=== PATIENT | female | born 1935 | race Caucasian/White ===

== ENCOUNTER 2018-04-27 06:35 | Inpatient (IN) | payer MEDICARE ==
[2018-04-27] MEDS ORDERED: Aspirin 81 mg CHEW TAB* 81 MG TAB.CHEW PO ONE (07:02)
[2018-04-27] MEDS ORDERED: Morphine VIAL* 4 MG/ML VIAL (1 ml vial) IV ONE ×2 (07:04→07:05)
[2018-04-27] MEDS ORDERED: PROCHLORPERAZINE INJ 5 MG/ML 2 ML VIAL IV ONE (07:04)
[2018-04-27 07:38] LABS: ABS Basophils 0 10^3/ul (0-0.2); ABS Eosinophils 0.2 10^3/ul (0-0.6); ABS Lymphocytes 1.2 10^3/ul (1.0-4.8); ABS Monocytes 0.5 10^3/ul (0-0.8); ABS Neutrophils 3.9 10^3/ul (1.5-7.7); ABS Nucleated RBC 0 10^3/ul; Eosinophil % 2.8 % (0-6); Hematocrit 41 % (35-47); Hemoglobin 14.1 g/dl (12.0-16.0); Lymphocyte % 20.9 % (25-47); Mean Corpuscular HGB Conc 34 g/dl (31-36); Mean Corpuscular Hemoglobin 33 pg (27-31); Mean Corpuscular Volume 96 fL (80-97); Mean Platelet Volume 8.7 um3 (7.4-10.4); Nucleated Red Blood Cells % 0.1; Platelet Count 192 10^3/ul (150-450); Red Blood Count 4.28 10^6/ul (4.0-5.4); Red Cell Distribution Width 13 % (10.5-15); White Blood Count 5.9 10^3/ul (3.5-10.8)
[2018-04-27] MEDS ORDERED: NS 0.9% 250 ML* 250 ML IV ONE (07:49)
[2018-04-27] MEDS ORDERED: Ondansetron ODT TAB* 4 MG SL ONE (07:49)
--- NOTE | 2018-04-27 07:49 | RAD ---
HISTORY: Central chest pain COMPARISONS: February 26, 2018 VIEWS: 1: frontal portable view of the chest at 7:05 AM FINDINGS: LINES AND TUBES: None. CARDIOMEDIASTINAL SILHOUETTE: The cardiomediastinal silhouette is normal for portable technique. PLEURA: The costophrenic angles are sharp. No pleural abnormalities are noted. LUNG PARENCHYMA: There is hyperinflation. ABDOMEN: The upper abdomen is clear. There is no subphrenic gas. BONES AND SOFT TISSUES: No bone or soft tissue abnormalities are noted. IMPRESSION: NO ACTIVE CARDIOPULMONARY DISEASE.
[2018-04-27] MEDS ORDERED: HYDROmorphone INJ* 2 MG/ML CARPUJECT SYRINGE IV SLOW PU ONE (07:50)
[2018-04-27 08:01] LABS: EGFR Non-African American 70.4 (>60)
[2018-04-27] MEDS ORDERED: Iohexol 350* (CONTRAST) 500 ML MDV IV ONE (08:20)
--- NOTE | 2018-04-27 08:26 | RAD ---
HISTORY: Right upper quadrant pain, epigastric pain COMPARISONS: None TECHNIQUE: Multiple transverse and longitudinal ultrasound images were obtained of the right upper quadrant of the abdomen using grayscale and color Doppler imaging. FINDINGS: LIVER: The liver is normal in shape, size, contour, and echogenicity. There are no focal parenchymal masses. There is normal hepatopedal flow of the portal vein on Doppler imaging. BILIARY TREE: There is no intrahepatic or extrahepatic biliary dilatation. The common duct measures 0.6 cm. GALLBLADDER: The gallbladder is well-visualized. There is no cholelithiasis, gallbladder wall thickening, pericholecystic fluid, or sonographic Mo sign. PANCREAS: The head of the pancreas is unremarkable. The tail of the pancreas is not well visualized secondary to overlying bowel gas. The technologist notes the pancreatic duct is dilated at 0.26 cm. This is within normal limits for the head and neck of the pancreas. RIGHT KIDNEY: The right kidney is normal in shape, size, contour, and echogenicity. There is no hydronephrosis or nephrolithiasis. The right kidney measures 10.4 x 3.5 x 4 cm. AORTA AND IVC: The aorta and IVC are unremarkable. FLUID: There are no pleural effusions. There is no free fluid within the hepatorenal recess. OTHER FINDINGS: None. IMPRESSION: NO ACUTE SONOGRAPHIC PATHOLOGY OF THE VISUALIZED PORTION OF THE ABDOMEN
--- OUTSIDE RECORDS SUMMARY | 2018-04-27 08:37 | XMS REPORT ---
:1935 External Reference #:[id number] Author Organization [facility] Address [address] [place] [address] Phone [phone] Care Team Providers Name Role Phone Ismael Lowe M.D. Primary Care Physician Unavailable Payers Type Date Identification Numbers Payment Provider Subscriber Commercial Policy Number: [id number] [employer] [place] [employer] [facility] [employer] Number: [id number] 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, bilateral Onset: 01/21/2018 Sensorineural hearing loss Jhon Collier MD Active Onset: 01/21/2018 Chronic sinusitis Jhon Collier MD Active Onset: 01/21/2018 Chronic rhinitis Jhon Collier MD Active Family History Date Family Member(s) Problem(s) Comments General Allergies General Asthma General Cancer General Heart Attack Social History Type Date Description Comments Occupation Retired RN Cigarette Use Negative For Former Cigarette Smoker Cigarette Use Negative For Current Cigarette Smoker Cigars current.no Pipe current.no Smokeless Tobacco current.no ETOH Use Current Alcohol Use Occasionally Allergies, Adverse Reactions, Alerts Date Description Reaction Status Severity Comments 03/31/2014 Diovan active 03/31/2014 Morphine active 12/28/2008 NKDA inactive Medications Medication Date Status Form Strength Qnty SIG Indications Ordering Provider Fluticasone 04/16 Active Suspension 50mcg/Act 16uni 2 puffs H69.83 Jhon ts both sides Ruparelia once a day , Omeprazole Active 20mg 1 po daily [place], /0000 Ismael Cabello M.D. Vitamin D Active 1000Unit 1 po daily [place], /0000 Ismael Cabello M.D. Aspirin Active 81mg 1 po daily [place], /0000 Ismael Cabello M.D. Coreg Active 3.125,G 1 po daily [place], /0000 Ismael Cabello M.D. Premarin Active 0.625mg 1 GM per [place], / week Ismael Cabello M.D. Tylenol Active 325mg prn [place], /0000 Ismael Cabello M.D. Proair HFA Active 108(90) 2 puffs [place], / Q4PRN Ismael Cabello M.D. Calcium Active 500mg 1 po daily [place], /0000 Ismael Cabello M.D. Multivitamins Active 1 po daily [place], /0000 Ismael Cabello M.D. Preservision Active 2-2 1 po bid [place], [place] /0000 Ismael Cabello M.D. Dilaudid Active 2mg 1-2 po prn [place], q4-6hrs Ismael kelley M.D. Symbicort Active Aerosol 80-4.5mcg Unknown /Act Prednisone Active TBPK 5mg (48) as [place], 0000 directed Ismael Cabello M.D. Amitriptyline HCL Active Tablets 10mg 4 Tabs QHS Unknown Hydroxychloroquin Active Tablets 200mg 2 Tabs Unknown e Sulfate Daily Actonel Active Tablets 35mg Weekly Unknown Vitamin B Complex Active Tablets 1 by mouth every day Hydromorphone HCL Active Tablets 4mg Take 1 Tablet By Mouth Three Times Daily as Needed - Maximum Daily Dos Sodium Chloride Active Nebulizer 0.9% Inhale The Contents Of [address] Nebulizer Two Times Daily Sertraline HCL Active Tablets 75mg Take 1 Unknown 0000 Tablet By Mouth Every Day Doxycycline 03/04 Hx Tablets 100mg 20tab 0ne by J32.9 Jhon s mouth Amira - twice a MD Pepcid 03/31 Hx Tablets 40mg 30tab 40 mg p.o. 787.24 Jhon s q.h.diann Medel MD 03/31 Tessalon Perles 03/28 Hx Capsules 100mg 30cap one tablet 786.2 Jhon s po q6h prn Amira - and qMD ajay 03/31 Actonel 00/ Hx Unknown / - 03/28 Premarin / Hx Unknown / - 03/31 Meloxicam / Hx Unknown / - 03/31 Fish Oil / Hx Unknown / - 03/31 Magnesium 00/ Hx Unknown / - 03/31 Calcium 00/ Hx Unknown / - 03/31 Centrum 00/ Hx Unknown / - 03/31 Amitriptyline HCL 00/ Hx Unknown / - 03/28 Albuterol Sulfate 00/ Hx Unknown ER / - 03/31 Loratadine 00/ Hx Unknown / - 03/31 Lisinopril 00/ Hx Unknown / - 03/31 Dulera 00/ Hx inhale 2 [place], /0000 puffs bid Ismael Medel M.D. 08/27 Melatonin CR 00/00 Hx 5mg 1 po QHS [place], /0000 Ismael Medel M.D. 01/21 Nasonex 00/00 Hx Unknown / - 04/28 Provigil 00/ Hx 100mg 1 po daily [place], /0000 Ismael Medel M.D. 08/27 Vitamin E 00/ Hx Unknown / - 03/31 Zolpidem Tartrate 00/ Hx Unknown ER / - 03/31 Furosemide 00/00 Hx 20mg prn [place], /0000 Ismael Medel M.D. 08/27 Percocet Hx 5-325mg 1-2 po PRn [place], /0000 q4-6hrs Ismael Medel M.D. 08/27 Zoloft Hx 75mg 1 po daily [place], /0000 Ismael Medel M.D. 04/01 Sertraline HCL Hx Tablets 50mg Take 1 Unknown Tablet By - Mouth 04/01 Day Vital Signs Date Vital Result Comment 04/01/2018 Weight 138.00 lb Weight in kg's 62.597 Height 62.25 inches 5'2.25" Height in cm's 158.1 cm BMI (Body Mass Index) 25.0 kg/m2 03/04/2018 Weight 138.00 lb Weight in kg's 62.597 Height 62.25 inches 5'2.25" Height in cm's 158.1 cm BMI (Body Mass Index) 25.0 kg/m2 01/21/2018 Weight 138.00 lb Weight in kg's 62.597 Height 62.25 inches 5'2.25" Height in cm's 158.1 cm BMI (Body Mass Index) 25.0 kg/m2 04/16/2017 BP Systolic 122 mmHg BP Diastolic 78 mmHg Heart Rate 101 /min Respiratory Rate 17 /min Weight 148.00 lb Weight in kg's 67.133 Height 62.25 inches 5'2.25" Height in cm's 158.1 cm BMI (Body Mass Index) 26.8 kg/m2 08/28/2016 BP Systolic 129 mmHg BP Diastolic 66 mmHg Heart Rate 89 /min Respiratory Rate 17 /min Weight 148.00 lb Weight in kg's 67.133 Height 62.25 inches 5'2.25" Height in cm's 158.1 cm BMI (Body Mass Index) 26.8 kg/m2 07/02/2015 BP Systolic 112 mmHg BP Diastolic 71 mmHg Heart Rate 84 /min Respiratory Rate 16 /min Weight 138.00 lb Weight in kg's 62.597 Height 62.25 inches 5'2.25" Height in cm's 158.1 cm BMI (Body Mass Index) 25.0 kg/m2 03/31/2014 BP Systolic 156 mmHg BP Diastolic 86 mmHg Heart Rate 82 /min Respiratory Rate 16 /min Weight 138.00 lb Weight in kg's 62.597 Height 62.25 inches 5'2.25" Height in cm's 158.1 cm BMI (Body Mass Index) 25.0 kg/m2 04/28/2013 BP Systolic 127 mmHg BP Diastolic 76 mmHg Heart Rate 83 /min Respiratory Rate 16 /min Weight 140.00 lb Weight in kg's 63.504 Height 62 inches 5'2" Height in cm's 157.5 cm BMI (Body Mass Index) 25.6 kg/m2 03/31/2013 BP Systolic 157 mmHg BP Diastolic 87 mmHg Heart Rate 77 /min Respiratory Rate 17 /min Weight 140.00 lb Weight in kg's 63.504 05/03/2009 Heart Rate 84 /min Respiratory Rate 16 /min Weight 138.00 lb Weight in kg's 62.597 12/28/2008 Heart Rate 84 /min Respiratory Rate 16 /min Weight 138.00 lb Weight in kg's 62.597 Results Test Date Test Result H/L Range Note CBC With Manual Diff 04/29/2013 White Blood Count 5.1 10^3/uL 4.8-10.8 Red Blood Count 4.13 10^6/uL 4.0-5.4 Hemoglobin 13.0 g/dL 12.0-16.0 Hematocrit 39 % 35-47 Mean Corpuscular Volume 94 fL 80-97 Mean Corpuscular Hemoglobin 32 pg High 27-31 Mean Corpuscular HGB Conc 34 g/dL 31-36 Red Cell Distribution Width 13 % 10.5-15 Platelet Count 202 10^3/uL 150-450 Mean Platelet Volume 10 um3 7.4-10.4 Abs Neutrophils 3.4 10^3/uL 1.5-7.7 Abs Lymphocytes 1.0 10^3/uL 1.0-4.8 Abs Monocytes 0.4 10^3/uL 0-0.8 Abs Eosinophils 0.2 10^3/uL 0-0.6 Abs Basophils 0 10^3/uL 0-0.2 Abs Nucleated RBC 0 10^3/uL Neutrophil % 70 % 38-83 Band % 2 % 0-8 Lymphocytes % 21 % Low 25-47 Monocytes % 3 % 0-13 Eosinophils % 4 % 0-6 RBC Morphology Normal Normal Laboratory test finding 04/29/2013 TSH (Thyroid Stimulating 1.89 miu/mL 0.34-5.60 1 Horm) Comp Metabolic Panel 04/29/2013 Sodium 136 mmol/L 133-145 Potassium 4.4 mmol/L 3.5-5.0 Chloride 102 mmol/L 101-111 Co2 Carbon Dioxide 28.0 mmol/L 22-32 Anion Gap 6.0 mmol/L 2-11 Glucose 88 mg/dL 70-100 Blood Urea Nitrogen 16 mg/dL 6-24 Creatinine 0.60 mg/dL 0.50-1.40 BUN/Creatinine Ratio 26.7 High 8-20 Calcium 9.5 mg/dL 8.1-9.9 Total Protein 5.9 g/dL Low 6.2-8.1 Albumin 3.5 g/dL 3.2-5.2 Globulin 2.4 g/dL 2-4 Albumin/Globulin Ratio 1.5 1-3 Total Bilirubin 0.6 mg/dL 0.4-1.5 Alkaline Phosphatase 52 U/L 30-110 Alt 17 U/L 14-54 Ast 18 U/L 12-42 Egfr Non- 96.4 >60 Egfr 124.0 >60 2 1 FASTING 2 Because ethnic data is not always readily available, this report includes an eGFR for both -Americans and non- Americans. The National Kidney Disease Education Program (NKDEP) does not endorse the use of the MDRD equation for patients that are not between the ages of 18 and 70, are , have extremes of body size, muscle mass, or nutritional status, or are non- or non-. According to the National Kidney Foundation, irrespective of diagnosis, the stage of the disease is based on the level of kidney function: Stage Description GFR(mL/min/1.73 m(2)) 1 Kidney damage with normal or decreased GFR 90 2 Kidney damage with mild decrease in GFR 60-89 3 Moderate decrease in GFR 30-59 4 Severe decrease in GFR 15-29 5 Kidney failure <15 (or dialysis) Procedures Date CPT Code Description Status 01/28/2018 72903 Tympanostomy W/Tube Local Or Topical Anes. Completed 01/21/2018 32414 Tympanometry Completed 01/21/2018 67183 Comprehensive Audiogram Completed 01/21/2018 46307 Binocular Microscopy Completed 09/05/2016 95041 Injection,Anesthetic Agent Completed 08/28/2016 46040 Injection,Anesthetic Agent Completed 04/28/2013 69219 Fiberoptic Laryngoscopy Completed 03/28/2011 68600 Fiberoptic Laryngoscopy Completed Encounters Type Date Location Provider CPT E/M Dx Office Visit 04/01/2018 10:15a [place],After 11/23/07 [place] [address] J32.9 J31.0 H69.83 Office Visit 03/04/2018 2:45p [place],After 11/23/07 [place] [address] J32.9 J31.0 H69.83 Office Visit 01/28/2018 2:30p [place],After 11/23/07 [place] [address] H69.83 J31.0 H65.21 Office Visit 01/21/2018 9:45a [place],After 11/23/07 [place] [address] J31.0 H69.83 J32.9 H90.5 Office Visit 04/16/2017 3:15p [place],After 11/23/07 [place] [address] H69.83 J31.0 Office Visit 08/28/2016 9:15a [place],After 11/23/07 [place] [address] G50.1 G44.091 Office Visit 07/02/2015 9:45a [place],After 11/23/07 [place] [address] 786.2 472.0 Office Visit 03/31/2014 11:00a [place],After 11/23/07 [place] [address] 173.31 Office Visit 04/28/2013 11:15a [place],After 11/23/07 [place] [address] 786.2 787.24 Office Visit 03/31/2013 8:45a [place],After 11/23/07 [place] [address] 787.24 786.2 472.0 Office Visit 03/28/2011 8:45a [place],After 11/23/07 [place] [address] 472.0 786.2 787.24 401.9 Office Visit 10/26/2009 10:45a [place],After 11/23/07 [place] [address] 472.0 351.8 Office Visit 10/11/2009 10:45a [place],After 11/23/07 [place] [address] 472.0 473.0 Office Visit 05/03/2009 1:30p [place],After 11/23/07 [place] [address] 529.0 351.8 Office Visit 12/28/2008 1:30p [place],After 11/23/07 [place] [address] 470 781.1 Plan of Care 04/01/2018 - Jhon Collier MDJ32.9 Chronic sinusitis, ksplfgfbxmxP44.0 Chronic dcwajfulY51.83 Other specified disorders of Eustachian tube, bilateralComments:At this point I feel that she is relatively frustrated that were not able to give her a good diagnosis and help. But I do feel that this situation is unlikely to be resolved easily with further medical management and probably requires some psychological support that this may be a condition that she may have to live with. 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 She refuses this answer.
[2018-04-27] MEDS ORDERED: Lidocaine 2% VISCOUS* 15 ML UDC PO ONE (08:41)
[2018-04-27] MEDS ORDERED: Al Hydrox/Mg Hydrox/Simet LIQ* 30 ML UDC PO ONE (08:41)
--- NOTE | 2018-04-27 08:53 | RAD ---
STUDY: CT angiography of the chest, abdomen and pelvis. 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 Relevant surgical history includes hysterectomy. COMPARISON: CT of the chest dated February 21, 2015 TECHNIQUE: Multidetector CT angiography of the chest, abdomen and pelvis were obtained from the lung apices to the ischial tuberosities after the intravenous injection of 100 mL Omnipaque 350. Reformats were created in the coronal and sagittal planes. 3-D vascular imaging was created from the source images and reviewed as well. ANGIOGRAPHIC FINDINGS: The thoracic and abdominal aorta does not exhibit any pathologic dilatation or evidence of acute dissection. There is scattered calcified atherosclerosis at the arch of the aorta and major branch vessels. There is mild curvature of the lower abdominal aorta, appropriate for the patient's age. There is adequate filling of the major branch vessels of the abdominal aorta including the celiac trunk, superior mesenteric artery, bilateral renal arteries and inferior mesenteric artery Contrast is seen filling as far as the bilateral superficial femoral arteries. NON ANGIOGRAPHIC FINDINGS: Chest: The lungs are clear. There are no large pleural effusions. There is no mediastinal or hilar lymphadenopathy. There is a trace pericardial effusion. There is no cardiomegaly. Abdomen & Pelvis: The liver, spleen, pancreas and adrenal glands are grossly normal in appearance. The gallbladder is normal. The kidneys are normal in appearance without focal mass, calcification or signs of hydronephrosis. The renal cortices enhance promptly and symmetrically on arterial phase imaging. Evaluation of the gastrointestinal tract is limited without oral contrast. The small and large bowel are not distended. The partially gas-filled appendix is most likely identified at the base of the cecum without focal inflammatory change (coronal image 59 and axial image 171). At the low midline abdomen there is focal infiltration of the peritoneal fat and mesenteric root (for example axial image 177). In this same area there is trace ascites. There are numerable rectosigmoid diverticula, some with inspissated oral contrast without focal inflammatory change. There is no gross retroperitoneal or mesenteric lymphadenopathy. The uterus is surgically absent. A pessary device is noted at the pelvic floor. Multilevel degenerative changes of the thoracic and lumbar spine include loss of intervertebral disc height.There are no sinister bone lesions. IMPRESSION: 1. Normal and age-appropriate CT arteriography as described above. There is no sign of pathologic aneurysmal dilatation or acute aortic dissection. 2. Evaluation of the gastrointestinal tract is limited without oral contrast, but CT findings are compatible with enteritis involving the small bowel of the low midline abdomen. 3. Additional chronic, degenerative and iatrogenic findings described in the body the report.
[2018-04-27] MEDS ORDERED: Metoprolol Tartrate IV* 1 MG/ML 5 ML VIAL IV ONE (08:57)
[2018-04-27] MEDS ORDERED: Nitroglycerin TAB 0.4 MG* 0.4 MG TAB SL ONE (09:20)
[2018-04-27] MEDS ORDERED: Magnesium Hydroxide LIQ* 30 ML UDC PO PRN (09:52)
[2018-04-27] MEDS ORDERED: Loperamide CAP* 2 MG PO PRN (09:59)
[2018-04-27] MEDS ORDERED: Omeprazole CAP* 20 MG PO SCH (10:00)
[2018-04-27] MEDS: Sodium Chloride(INHALANT)0.9%* 5 ML NEB.SOLN INH SCH ×2 (11:24→20:45)
[2018-04-27] MEDS: HYDROmorphone INJ* 2 MG/ML CARPUJECT SYRINGE IV SLOW PU PRN ×2 (12:11→21:49)
[2018-04-27] MEDS: Sertraline* 25 MG TAB PO SCH (12:13)
[2018-04-27] MEDS: Vitamin B Complex TAB PO SCH (12:13)
[2018-04-27] MEDS: Hydroxychloroquine TAB* 200 MG PO SCH (12:14)
[2018-04-27] MEDS: predniSONE TAB* 5 MG PO SCH (12:14)
[2018-04-27] MEDS: Aspirin EC TAB* 81 MG TAB.EC PO SCH (12:14)
[2018-04-27] MEDS: Fluticasone NASAL SPRAY 50MCG* 16 gm SPRAY BTL BOTH NARES SCH (12:14)
[2018-04-27] MEDS: Carvedilol TAB* 6.25 MG PO SCH ×2 (12:14→21:01)
[2018-04-27] MEDS: NS 0.9% 1000 ML* 1,000 ML IV SCH ×2 (12:31→19:24)
--- NOTE | 2018-04-27 12:41 | HP ---
AMENDED REPORT NOW INCLUDES COSIGNER DESIGNATION - ESIGNED BEFORE ADJUSTMENT CC: Brandan Rosario MD; Derrick Lowe MD* ADMISSION HISTORY AND PHYSICAL: DATE OF ADMISSION: 04/27/18 PATIENT OF: Alyssa Ch MD PRIMARY CARE PHYSICIAN: Derrick Lowe MD PRIMARY MANAGER IN HOME: Brandan Rosario MD ATTENDING HOSPITALIST: Dr. Ch.* (DICTATED BY SARBJIT MILLER) CHIEF COMPLAINT: Epigastric and chest pain. HISTORY OF PRESENT ILLNESS: Mrs. Duran is a pleasant 82-year-old female with a complicated past medical history significant for cardiomyopathy, an unknown autoimmune disease, a chronic diastolic heart failure, as well as multiple chronic joint pains related to fibromyalgia rheumatica. She presented to the emergency room earlier this morning complaining of acute onset of severe epigastric and chest pain. The patient notes that she was awakened early this morning with severe epigastric pain that radiated up to her chest and back towards her back. She noted associated nausea, but denies any vomiting, palpitations, shortness of breath, cough, or fever. She described it as a sharp pain that had gotten progressively worse in the past 2 hours. She was brought to the emergency room by her friend and was evaluated for possible acute coronary syndrome. It is known that the patient has a history of cardiomyopathy and has been doing annual echocardiograms most recently on and noted to have normal left ventricle ejection fraction of 55% to 60% and no evidence of any acute changes compared to previous studies. She had extensive workup during her ED visit including an ultrasound of the right upper quadrant that failed to reveal any evidence of cholecystitis or cholelithiasis. She denies any associated changes in the bowel habits, jaundice, or changes in the color of stool of urine. She also had a CTA of the chest, abdomen, and pelvis that revealed no evidence of aneurysm; however, showed possibility of enteritis without definite diagnosis because of the lack of oral contrast. The patient was also noted to be severely hypertensive in the ED for which she received 5 mg of IV metoprolol with very good response. She also had a GI cocktail in the ED that alleviated her symptoms; however, she continued to have some mild epigastric pain. Her initial troponin was 0 and her EKG was essentially normal with no evidence of ST changes noted. Given her advanced age and her known history of autoimmune disorders, we were asked to see the patient for evaluation and to consider admission to telemetry for stress test on the following day. At the time of admission, the patient was comfortable in bed and denied any significant recurrent chest pain or epigastric pain. PAST MEDICAL HISTORY: 1. As mentioned above, significant for asthma without exacerbation. 2. Cardiomyopathy. 3. Glaucoma. 4. Degenerative joint disease. 5. GERD. 6. Hyperlipidemia. 7. Chronic diastolic heart failure with last echocardiogram in February of this year with ejection fraction of 55% to 60%. 8. Obstructive sleep apnea; however, not treated. The patient used no CPAP at home. 9. Collagen disorder. 10. Raynaud's syndrome. 11. Depression. 12. Mitral valve disease. PAST SURGICAL HISTORY: Significant for: 1. Bilateral total knee replacements in 2011. 2. Hysterectomy. 3. Nasal septoplasty. 4. Tubal ligation. 5. Right lower extremity vein stripping. 6. Tonsillectomy and adenoidectomy in childhood. 7. Bilateral cataract extractions in 2010. 8. Most recently right ear tube placement due to symptoms of chronic Eustachian tube congestion. CURRENT MEDICATIONS: Her medications at home include: 1. Atenolol 500 mg p.o. q.6 hours as needed for pain. 2. Ventolin MDI 2 puffs inhaler q.4 hours as needed for shortness of breath. 3. Elavil 40 mg p.o. q.h.s. 4. Vitamin C tablets 1000 mg p.o. daily. 5. Aspirin 81 mg p.o. daily. 6. Symbicort 80/4.5 two puffs inhaled b.i.d. 7. Coreg 6.25 mg p.o. b.i.d. 8. Vitamin D tablets 2000 units p.o. daily. 9. Estrogen cream 1 application vaginally twice a week. 10. Flonase nasal spray 50 mcg 2 sprays in both nares daily. 11. Dilaudid 4 mg p.o. t.i.d. as needed for pain. 12. Plaquenil 400 mg p.o. daily. 13. Probiotic acidophilus 1 tablet p.o. daily. 14. Xyzal 5 mg p.o. daily. 15. Imodium 2 mg p.o. daily as needed for diarrhea. 16. Prilosec 20 mg p.o. daily. 17. Prednisone 7.5 mg p.o. daily. 18. Actonel 35 mg p.o. weekly. 19. Zoloft 75 mg p.o. daily. 20. Sodium chloride 5 mL inhaled via nebulizer b.i.d. 21. Multivitamin 1 tablet p.o. b.i.d. 22. Vitamin B complex 1 tablet p.o. daily. ALLERGIES: Multiple including MORPHINE, VALSARTAN. She also notes that taking PERCOCET in large doses causes her dry mouth and QUINOLONES cause diarrhea. FAMILY HISTORY: Noncontributory. SOCIAL HISTORY: The patient is a nonsmoker who denies alcohol intake or illicit drug use. She is a retired nurse. She is and lives by herself and has a close friend that checks on her daily. Her surrogate decision makers are her daughters Lori and Marly who live in [place] and [place] respectively. REVIEW OF SYSTEMS: I have performed a 14-point review of systems. All the pertinent positives and negatives are mentioned in the history of present illness and the remainder of review of systems is essentially negative. PHYSICAL EXAMINATION GENERAL: She is a pleasant elderly female, appears comfortable, and in no acute distress or discomfort at the time of admission. VITAL SIGNS: Reveal blood pressure of 144/79 which had come down from 204 on 101 upon presentation. Her pulse is 76, temperature is 97.5, respirations of 16 , and O2 sat of 98% on room air. HEENT: Head is normocephalic and atraumatic. Sclerae anicteric, PERRLA. EOMs intact. Oropharynx is pink and moist with no exudate. NECK: Supple. Trachea midline. No cervical adenopathy, thyromegaly, or JVD. LUNGS: Clear to auscultation bilaterally. HEART: Regular rate and rhythm. Normal S1 and S2 without rubs, murmurs, or gallops. BACK: Normal curvature, no CVA tenderness. BREASTS: Deferred at this time. ABDOMEN: Soft and nondistended. There is mild epigastric tenderness noted on deep palpation without guarding, rigidity, or rebound tenderness. There is no hernias, masses, or hepatosplenomegaly. EXTREMITIES: Without cyanosis, clubbing, or edema. RECTAL: Deferred at this time. NEUROLOGIC: Grossly intact. She is awake, alert, and oriented x3. Equal hand recovery specialist and tongue is midline. LABORATORY WORKUP: CBC with white count of 6000, hemoglobin 14.1, hematocrit of 41, and platelets of 192,000. Her chemistry panel was sodium of 140, potassium 3.7, CO2 of 30, BUN 21, creatinine 0.78. Her lactic acid is 1.8, glucose of 135, magnesium 2.1. LFTs, TSH, and free T4 are all within normal limits and troponin was 0. ACCESSORY DIAGNOSTIC DATA: Chest x-ray with no acute changes noted. Gallbladder ultrasound as mentioned with no evidence of cholecystitis or cholelithiasis. CTA of the chest, abdomen, and pelvis with no evidence of aneurysm noted and question possibility of enteritis in the small bowel. IMPRESSION: An 82-year-old female with complicated past medical history including hypertension and unknown autoimmune disease, as well as a collagen disorder for which she has been chronically on prednisone and Plaquenil as well as fibromyalgia rheumatica for which she has been chronically on Dilaudid at home who presented to the emergency room this morning with acute onset of severe epigastric and chest pain radiating to her back with negative workup at this time who will be admitted for observation to the telemetry unit to rule out acute coronary syndrome. ASSESSMENT AND PLAN: 1. Chest pain. It seems to be more epigastric, radiating to her back which is likely related to gastritis versus digestive GI issues. Given her age and multiple comorbidities, it is necessary to rule out any possibility of acute coronary syndrome for which the patient will be admitted to telemetry for close observation and serial troponins. We will plan on repeating her EKG tomorrow morning and we will schedule her for a nuclear stress test. She appears to be stable from a cardiac standpoint at this time and her last echocardiogram done 2 months ago revealed good ejection fraction with no significant ventricular abnormality. 2. Hypertension. We will continue her on Coreg and it is noted that the patient had a hypertensive episode upon presentation likely secondary to her pain which responded well to a single dose of IV Lopressor 5 mg. We will maintain her on all her home medications and will monitor her closely. 3. Autoimmune disorder. We will continue the patient on her prednisone and Plaquenil. 4. History of asthma. We will continue the patient on her Symbicort, albuterol inhaler, as well as normal saline nebulizers. 5. Gastroesophageal reflux disease. The patient will be continued on her omeprazole and also will use Maalox as needed for indigestion. 6. History of depression. We will continue her on home Zoloft. 7. Code status. The patient is a full code. 8. DVT prophylaxis. The patient has scored 4 making her a high risk and will be covered with subcu heparin. 9. Disposition. The patient will be placed to telemetry unit on observation status. TIME SPENT: I have spent approximately 60 minutes admitting this patient with greater than50% spent taking history and physical and discussing plans of care. I have discussed the case with my attending Dr. Ch who agreed to the plan of care. SARBJIT MILLER [id number]/[facility] #: [id number] MTDD
[2018-04-27] MEDS: Mometasone/Formoter 100/5 MDI INH SCH ×2 (13:48→20:45)
[2018-04-27] MEDS ORDERED: Heparin VIAL(*) 5000 UNITS/ML VIAL (FIVE THOUSAND) SUBCUT SCH (14:00)
[2018-04-27] MEDS ORDERED: NS 0.9% 500 ML* 500 ML IV ONE (16:08)
[2018-04-27] MEDS: Ondansetron 40 MG VIAL* 2 MG/ML 20 ML VIAL IV PRN (16:28)
--- NOTE | 2018-04-27 16:29 | PN ---
Progress Note - Progress Note Date of Service: 04/27/18 Note: I was called by nursing staff to evaluate the patient. She had a large loose bloody bowel movement, after which she got dizzy with BP of 80/50 Brought back to her bed and I ordered a bolus of 500cc 0.9% NS STAT CBC, type and screen, and lactic acid were ordered Patient was seen and examined with in room as well. Still with moderate epigastric tenderness, radiating to her back Denies any headaches, syncope, chest pain or SOB. I contacted Dr. Lee who will see patient for consultation Concern for ischemic colitis at this point Clear liquid diet, await labs, NPO after midnight for possible Flex Sig per Dr. Lee's recommendations
[2018-04-27 16:33] LABS: Hematocrit 47 % (35-47); Hemoglobin 15.5 g/dl (12.0-16.0); Mean Corpuscular HGB Conc 33 g/dl (31-36); Mean Corpuscular Hemoglobin 32 pg (27-31); Mean Corpuscular Volume 98 fL (80-97); Mean Platelet Volume 8.8 um3 (7.4-10.4); Platelet Count 201 10^3/ul (150-450); Red Blood Count 4.81 10^6/ul (4.0-5.4); Red Cell Distribution Width 13 % (10.5-15); White Blood Count 13.9 10^3/ul (3.5-10.8)
[2018-04-27] MEDS: Cetirizine* 10 MG TAB PO SCH (17:07)
[2018-04-27] MEDS: Pantoprazole IV* 40 MG IV SCH (18:30)
[2018-04-27] MEDS ORDERED: ZOSYN 3.375 GM x ONE DOSE over 30 miuntes IVPB ×2 (19:30)
[2018-04-27] MEDS: HYDROmorphone TAB* 4 MG PO PRN (19:31)
[2018-04-27 20:20] LABS: Hematocrit 46 % (35-47); Hemoglobin 15.3 g/dl (12.0-16.0)
[2018-04-27] MEDS: Amitriptyline TAB* 10 MG PO SCH (21:01)
--- NOTE | 2018-04-27 22:09 | CONS ---
GASTROENTEROLOGY CONSULT: DATE OF CONSULT: 04/27/18 CONSULTING PHYSICIANS: Derrick Lowe MD; Alyssa Ch MD; Brandan Rosario MD REASON FOR CONSULTATION: A 4 a.m. onset of mid to upper abdominal pain followed by bloody diarrhea and CT scan showing thickening of small bowel in the low midline. DICTATION ENDS ABRUPTLY HERE [id number]/[facility] #: [id number] MTDD
--- NOTE | 2018-04-27 23:08 | CONS ---
GASTROENTEROLOGY CONSULT: DATE : CONSULTING PHYSICIAN: Derrick Lowe, Alyssa Ch, Brandan Rosario. REASON FOR CONSULTATION: Abdominal pain beginning at 4 a.m. followed by bloody stools in the midafternoon. A CT scan showing possible thickening of lower bowel loops, though a noncontrast study. HISTORY OF PRESENT ILLNESS: This 82-year-old woman, who is on prednisone 7.5 mg daily because of an undefined autoimmune disorder and also Plaquenil 400 mg and a dozen other medications, was in her usual state of somewhat compromised health the last week. She ate normally yesterday. This morning, she was awakened from sleep at 4 a.m. with mid upper abdominal pain. She did not have any vomiting or cramps or diarrhea. Pain was just above the navel and eventually seemed to radiate a little bit to the left and to the back. She had 4 or 5 small formed stools in the morning, which is her pattern. There was no blood or fever. She came to the emergency room around 7 a.m. Her white count was normal. With the character of the pain, a vascular catastrophe was suspected and she had a CTA with no oral contrast. No vascular event was defined. She had negative troponins. There was steady pain and she was admitted and source of her pain was unclear. In the middle of the afternoon, she had a large bloody bowel movement. About an hour later, she had a smaller one. The focus changed from chest pain rule out coronary syndrome to possible enteric ischemia. She has never had a illness like this before. Prior colonoscopies have shown pancolonic diverticulosis with the last exam May of 2014. At that time, biopsies were negative for microscopic colitis. She is prone to loose stools and takes an Imodium, maybe once a week. Often times, it will precipitate some mild constipation. Diarrhea has been longstanding. It was a cause for having duodenal biopsy in 2012 and that was negative. PAST MEDICAL HISTORY: 1. Autoimmune disorder - she is followed by Dr Gaspar. 2. Anxiety and depression. 3. History of diastolic dysfunction, followed with annual echos. 4. Sleep apnea - not under treatment. 5. Status post total knee replacement in 2011. 6. Status post simple hysterectomy - she is not certain of the ovarian status. 7. History of nasal septoplasty. 8. History of tonsillectomy. 9. Cataract extraction in 2010. 10. Bronchiectasis - followed by Dr. Brown MEDICATIONS: Upwards of 18 - after medication reconciliation of greatest relevance appeared to be prednisone 7.5; Plaquenil 400; sertraline 75; Actonel 35; omeprazole 20; amitriptyline 40 mg h.s.; hydromorphone 40 mg t.i.d. SOCIAL HISTORY: She is , lives in [place]. 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 She has a disabled son with a substance abuse disorder. REVIEW OF SYSTEMS: No history of MO, syncope, pacemaker, seizures, MS, neuropathy, hepatitis, jaundice, renal stones or colon polyps. PHYSICAL EXAM: She is a chronically ill-appearing, elderly woman, in bed, moderately uncomfortable. There has been no vomiting. She is afebrile. Temp 97.6. Her eyes are a little bloodshot. Mucous membranes are normal. She has no adenopathy. Her lungs have some rhonchi and are decreased in breath sounds. Heart sounds are regular. Breast and pelvic exam is deferred. The abdomen is mildly rounded, mildly obese with diminished bowel sounds, although a few are heard. She has no guarding or rigidity, but complains of tenderness in the epigastrium and mid to left abdomen. Rectal deferred as she has been passing fresh blood. Extremities show no edema. There are well-healed scars of the knees. Neurologic - nonfocal with normal cranial nerves. Her mentation is normal. DIAGNOSTIC STUDIES/LAB DATA: Radiology review - gallbladder ultrasound shows no stones and a normal biliary tree with common duct 6 mm. There is no ascites. CT scan - no fluid collection or abscess in the abdomen; though without oral contrast, loops are not clearly defined. Labs: Repeat white count after 9 hours 13.9 up from 5.9. Hemoglobin 15.5, MCV 98, platelets 201. Creatinine is 0.78, BUN 21 this morning, lactate 2.2. LFTs normal. Albumin 4.3. IMPRESSION: This 82-year-old woman with an undefined autoimmune disorder, on prednisone and Plaquenil developed abdominal pain in the middle of the night and then came in with steady pain. There was no gastrointestinal signature to her description of symptoms. Later, she had a large bloody bowel movement. Most causes of gastrointestinal bleeding would not be associated with pain to this degree. It raises the question of ischemia and with the delay in the appearance of bleeding that would most likely be in the upper half of the colon one might think or possibly distal small bowel. She does not have distention or acute surgical signs on physical exam, but localized area of small bowel ischemia remains a possibility. After discussion with her clinician, she is going to be started on antibiotic and to have lactate, white count and other labs followed and 2 views of the abdomen done in the morning. If she is not progressed to sepsis or marisol ischemia, an unprepped limited colonoscopy could be useful for confirming colon ischemia. [id number]/[facility] #: [id number] EMILY
[2018-04-28] MEDS: Piperacillin/Tazobac ADVAN(*) 3.375 GM in NS 0.9% 100 ML* 100 ML IVPB SCH ×3 (00:11→17:36)
[2018-04-28] MEDS: HYDROmorphone INJ* 2 MG/ML CARPUJECT SYRINGE IV SLOW PU PRN ×4 (04:08→19:56)
[2018-04-28] MEDS: Ondansetron 40 MG VIAL* 2 MG/ML 20 ML VIAL IV PRN ×3 (04:12→12:19)
[2018-04-28 05:47] LABS: ABS Basophils 0 10^3/ul (0-0.2); ABS Eosinophils 0 10^3/ul (0-0.6); ABS Lymphocytes 0.4 10^3/ul (1.0-4.8); ABS Monocytes 0.6 10^3/ul (0-0.8); ABS Neutrophils 6.8 10^3/ul (1.5-7.7); ABS Nucleated RBC 0 10^3/ul; Eosinophil % 0.2 % (0-6); Hematocrit 43 % (35-47); Hemoglobin 14.6 g/dl (12.0-16.0); Lymphocyte % 4.6 % (25-47); Mean Corpuscular HGB Conc 34 g/dl (31-36); Mean Corpuscular Hemoglobin 33 pg (27-31); Mean Corpuscular Volume 96 fL (80-97); Mean Platelet Volume 8.9 um3 (7.4-10.4); Nucleated Red Blood Cells % 0; Platelet Count 201 10^3/ul (150-450); Red Cell Distribution Width 14 % (10.5-15); White Blood Count 7.8 10^3/ul (3.5-10.8)
[2018-04-28 06:05] LABS: EGFR Non-African American 85.3 (>60)
[2018-04-28] MEDS: Mometasone/Formoter 100/5 MDI INH SCH ×2 (07:32→20:20)
[2018-04-28] MEDS: Sodium Chloride(INHALANT)0.9%* 5 ML NEB.SOLN INH SCH ×2 (07:32→20:20)
--- NOTE | 2018-04-28 08:11 | PN ---
Subjective Date of Service: 04/28/18 Interval History: Patient reports no further bloody bowel movements today but did have 6 approx yesterday and 1-2 overnight noted to be bright red with dark clots. Continues to have diffuse abdominal pain with some nausea and dry heaving, denies any blood noted in emesis - only had "spit up small amount of bile". Pain is worse with movement. Denies fever or chills. Objective Active Medications: Acetaminophen (Tylenol Tab*) 650 mg PO Q4H PRN PRN Reason: FEVER/PAIN Al Hydrox/Mg Hydrox/Simethicone (Maalox Plus*) 30 ml PO Q6H PRN PRN Reason: INDIGESTION Albuterol (Ventolin Hfa Inhaler*) 2 puff INH Q4H PRN PRN Reason: SOB/WHEEZING Amitriptyline HCl (Elavil Tab*) 40 mg PO BEDTIME [facility] Last Admin: 04/27/18 21:01 Dose: 40 mg Ascorbic Acid (Vitamin C Tab*) 1,000 mg PO DAILY [facility] Aspirin (Aspirin Ec Tab*) 81 mg PO DAILY [facility] Last Admin: 04/27/18 12:14 Dose: 81 mg Carvedilol (Coreg Tab*) 6.25 mg PO BID [facility] Last Admin: 04/27/18 21:01 Dose: 6.25 mg Cetirizine HCl (Zyrtec*) 10 mg PO QPM [facility] Last Admin: 04/27/18 17:07 Dose: 10 mg Cholecalciferol (Vitamin D Tab*) 2,000 units PO DAILY [facility] Fluticasone Propionate (Flonase Nasal [place] 50mcg*) 2 spray BOTH NARES DAILY [facility] Last Admin: 04/27/18 12:14 Dose: 2 spray Hydromorphone HCl (Dilaudid Inj*) 1 mg IV SLOW PU Q4H PRN PRN Reason: PAIN - BREAKTHROUGH Last Admin: 04/28/18 04:08 Dose: 1 mg Hydromorphone HCl (Dilaudid Tab*) 4 mg PO TID PRN PRN Reason: PAIN Last Admin: 04/27/18 19:31 Dose: 4 mg Hydroxychloroquine Sulfate (Plaquenil Tab*) 400 mg PO DAILY [facility] Last Admin: 04/27/18 12:14 Dose: 400 mg Sodium Chloride (Ns 0.9% 1000 Ml*) 1,000 mls @ 75 mls/hr IV PER RATE [facility] Last Admin: 04/27/18 19:24 Dose: 75 mls/hr Piperacillin Sod/Tazobactam (Sod 3.375 gm/ Sodium Chloride) 100 mls @ 25 mls/ hr IVPB Q8H [facility] Last Admin: 04/28/18 00:11 Dose: 25 mls/hr Loperamide HCl (Imodium Cap*) 2 mg PO DAILY PRN PRN Reason: DIARRHEA Magnesium Hydroxide (Milk Of Magnesia Liq*) 30 ml PO Q4H PRN PRN Reason: CONSTIPATION Mometasone Furoate/Formoterol Fumar (Dulera 100/5 Mdi*) 2 puff INH BID [facility] Last Admin: 04/28/18 07:32 Dose: 2 puff Ondansetron HCl (Zofran 40 Mg Vial*) 4 mg IV Q4H PRN PRN Reason: NAUSEA/VOMITING Last Admin: 04/28/18 04:12 Dose: 4 mg Pantoprazole Sodium (Protonix Iv*) 40 mg IV Q24H [facility] Last Admin: 04/27/18 18:30 Dose: 40 mg Prednisone (Deltasone Tab*) 7.5 mg PO DAILY [facility] Last Admin: 04/27/18 12:14 Dose: 7.5 mg Sertraline HCl (Zoloft*) 75 mg PO DAILY [facility] Last Admin: 04/27/18 12:13 Dose: 75 mg Sodium Chloride (Sodium Chloride(Inhalant)0.9%*) 5 ml INH BID [facility] Last Admin: 04/28/18 07:32 Dose: 5 ml Vitamin B Complex/Vitamin E (B Complex-50*) 1 tab PO DAILY [facility] Last Admin: 04/27/18 12:13 Dose: 1 tab Vital Signs - 8 hr 04/28/18 04/28/18 04/28/18 04:08 04:21 05:04 Temperature 98.0 F Pulse Rate 100 Respiratory 18 16 16 Rate Blood Pressure 97/46 (mmHg) O2 Sat by Pulse 94 Oximetry 04/28/18 07:34 Temperature Pulse Rate 92 Respiratory 14 Rate Blood Pressure (mmHg) O2 Sat by Pulse 94 Oximetry Oxygen Devices in Use Now: Nasal Cannula Appearance: 82 yo female laying in bed A+Ox3 in NAD Eyes: No Scleral Icterus, PERRLA Ears/Nose/Mouth/Throat: NL Teeth, Lips, Gums, Mucous Membranes Moist Neck: NL Appearance and Movements; NL JVP Respiratory: - - mild coarse rhonchi throughout Cardiovascular: NL Sounds; No Murmurs; No JVD, RRR, No Edema Abdominal: - - soft, non-distended, diffuse tenderness, mild guarding. Hypoactive BS Lymphatic: No Cervical Adenopathy Extremities: No Edema, No Clubbing, Cyanosis Skin: No Rash or Ulcers, No Nodules or Sclerosis Neurological: Alert and Oriented x 3, NL Sensation, NL Muscle Strength and Tone Lines/Tubes/Other Access: Clean, Dry and Intact Peripheral IV Nutrition: - - NPO Result Diagrams: 04/28/18 12:04 04/28/18 05:34 Assess/Plan/Problems-Billing Assessment: 82 yo female with a PMH of HTN, 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 No signs of acute abdomen or Sepsis - Approx 6 bright red bowel movements yesterday afternoon/evening, 1-2 overnight and non since. Continues to have diffuse abdominal pain, exacerbated by movement. - Appreciate GI consult; most likely plan for flex-sig today with Dr. Lee. - Per GI ok for clears, at this point will do ice chips only d/t some nausea and dry heaving - HH stable. Continue to trend HH Q6hrs - Continue Zosyn - Continue pain control (2) Bronchiectasis Comment: - Chronic Hx - Follows with Dr. Brown - Continues home meds, Inhalers - Currently requiring supplemental O2 2L - most likley from pain and breathing shalllow. Plan for IS. (3) Asthma Comment: No evidence of acute exacerbation. Continue albuterol prn and symbicort. (4) Autoimmune disorder Comment: Continue plaquenil and prednisone. (5) Hypertension Comment: Controlled. Continue Coreg home dose 6.25 mg BID (6) DVT prophylaxis Comment: SCDs in the setting of GI bleeding (7) Full code status Status and Disposition: OBV switch to inpatient. Most likely will go home when medically stable.
--- NOTE | 2018-04-28 08:35 | RAD ---
INDICATION: Possible GI bleed. COMPARISON: Comparison is made with a prior CT of the abdomen and pelvis from April 27, 2018. TECHNIQUE: Supine and upright views of the abdomen were obtained. FINDINGS: The small bowel colon appear nondistended. There are few scattered air-fluid levels within the small bowel and colon. No free intraperitoneal air is seen. IMPRESSION: NONSPECIFIC GAS PATTERN. THERE ARE SCATTERED AIR-FLUID LEVELS WITHIN THE SMALL BOWEL AND COLON WITHOUT GROSS EVIDENCE FOR OBSTRUCTION.
[2018-04-28] MEDS: Hydroxychloroquine TAB* 200 MG PO SCH (09:48)
[2018-04-28] MEDS: Carvedilol TAB* 6.25 MG PO SCH ×2 (09:49→20:57)
[2018-04-28] MEDS: Vitamin B Complex TAB PO SCH (09:49)
[2018-04-28] MEDS: predniSONE TAB* 5 MG PO SCH (09:49)
[2018-04-28] MEDS: Sertraline* 25 MG TAB PO SCH (09:49)
[2018-04-28] MEDS: Aspirin EC TAB* 81 MG TAB.EC PO SCH (09:50)
[2018-04-28] MEDS: Ascorbic Acid TAB* 500 MG PO SCH (09:50)
[2018-04-28] MEDS: Cholecalciferol TAB* 1000 UNITS PO SCH (09:53)
[2018-04-28] MEDS: NS 0.9% 1000 ML* 1,000 ML IV SCH (09:53)
[2018-04-28] MEDS: Fluticasone NASAL SPRAY 50MCG* 16 gm SPRAY BTL BOTH NARES SCH (09:56)
[2018-04-28 12:25] LABS: Hematocrit 40 % (35-47); Hemoglobin 13.5 g/dl (12.0-16.0)
[2018-04-28] MEDS ORDERED: fentaNYL* 50 MCG/ML 2 ML VIAL (100 MCG VIAL) ONE (14:51)
[2018-04-28] MEDS ORDERED: Midazolam* 1 MG/ML 10 ML VIAL (10 MG) ONE (14:51)
[2018-04-28] MEDS ORDERED: NS 0.9% 100 ML* 100 ML ONE (17:30)
[2018-04-28] MEDS: Cetirizine* 10 MG TAB PO SCH (17:36)
[2018-04-28] MEDS: Pantoprazole IV* 40 MG IV SCH (17:36)
[2018-04-28 18:41] LABS: Hematocrit 40 % (35-47); Hemoglobin 13.2 g/dl (12.0-16.0)
[2018-04-28] MEDS: Amitriptyline TAB* 10 MG PO SCH (20:57)
[2018-04-29] MEDS: Piperacillin/Tazobac ADVAN(*) 3.375 GM in NS 0.9% 100 ML* 100 ML IVPB SCH ×3 (00:34→15:54)
[2018-04-29] MEDS: NS 0.9% 1000 ML* 1,000 ML IV SCH ×2 (04:10→20:40)
[2018-04-29 06:14] LABS: ABS Basophils 0 10^3/ul (0-0.2); ABS Eosinophils 0 10^3/ul (0-0.6); ABS Lymphocytes 0.5 10^3/ul (1.0-4.8); ABS Monocytes 0.6 10^3/ul (0-0.8); ABS Neutrophils 5.8 10^3/ul (1.5-7.7); ABS Nucleated RBC 0 10^3/ul; Eosinophil % 0.7 % (0-6); Hematocrit 36 % (35-47); Mean Corpuscular HGB Conc 33 g/dl (31-36); Mean Corpuscular Hemoglobin 32 pg (27-31); Mean Corpuscular Volume 97 fL (80-97); Mean Platelet Volume 8.9 um3 (7.4-10.4); Nucleated Red Blood Cells % 0; Platelet Count 165 10^3/ul (150-450); Red Blood Count 3.73 10^6/ul (4.0-5.4); Red Cell Distribution Width 14 % (10.5-15); White Blood Count 6.9 10^3/ul (3.5-10.8)
[2018-04-29 06:29] LABS: EGFR Non-African American 97.1 (>60)
[2018-04-29] MEDS: HYDROmorphone INJ* 2 MG/ML CARPUJECT SYRINGE IV SLOW PU PRN ×2 (06:38→15:51)
[2018-04-29] MEDS: Sodium Chloride(INHALANT)0.9%* 5 ML NEB.SOLN INH SCH ×2 (08:15→20:29)
[2018-04-29] MEDS: Mometasone/Formoter 100/5 MDI INH SCH ×2 (08:15→20:30)
[2018-04-29] MEDS ORDERED: NS 0.9% 100 ML* 100 ML ONE (08:49)
[2018-04-29] MEDS: Albuterol HFA INHALER* 8 gm MDI INH PRN ×2 (08:57→15:59)
[2018-04-29] MEDS: Fluticasone NASAL SPRAY 50MCG* 16 gm SPRAY BTL BOTH NARES SCH (08:58)
[2018-04-29] MEDS: Cholecalciferol TAB* 1000 UNITS PO SCH (08:58)
[2018-04-29] MEDS: Sertraline* 25 MG TAB PO SCH (08:58)
[2018-04-29] MEDS: Ascorbic Acid TAB* 500 MG PO SCH (08:58)
[2018-04-29] MEDS: predniSONE TAB* 5 MG PO SCH (08:59)
[2018-04-29] MEDS: Vitamin B Complex TAB PO SCH (08:59)
[2018-04-29] MEDS: Aspirin EC TAB* 81 MG TAB.EC PO SCH (08:59)
[2018-04-29] MEDS: Carvedilol TAB* 6.25 MG PO SCH ×2 (08:59→20:42)
[2018-04-29] MEDS: Hydroxychloroquine TAB* 200 MG PO SCH (08:59)
--- NOTE | 2018-04-29 11:00 | PN ---
Subjective Date of Service: 04/29/18 Interval History: Pt reports she feels better today, reporting more energy and less abdominal pain. She continues to have spasm like pain in her abdomen, especially after using her abdominal muscles/ No further bowel movements. Reports poor appetite but has been drinking water. Some intermittent "spitting up bile" but states she doesnt think she is nauseous. No fever or chills. Objective Active Medications: Acetaminophen (Tylenol Tab*) 650 mg PO Q4H PRN PRN Reason: FEVER/PAIN Al Hydrox/Mg Hydrox/Simethicone (Maalox Plus*) 30 ml PO Q6H PRN PRN Reason: INDIGESTION Albuterol (Ventolin Hfa Inhaler*) 2 puff INH Q4H PRN PRN Reason: SOB/WHEEZING Last Admin: 04/29/18 08:57 Dose: 2 puff Amitriptyline HCl (Elavil Tab*) 40 mg PO BEDTIME [facility] Last Admin: 04/28/18 20:57 Dose: 40 mg Ascorbic Acid (Vitamin C Tab*) 1,000 mg PO DAILY [facility] Last Admin: 04/29/18 08:58 Dose: 1,000 mg Aspirin (Aspirin Ec Tab*) 81 mg PO DAILY [facility] Last Admin: 04/29/18 08:59 Dose: 81 mg Carvedilol (Coreg Tab*) 6.25 mg PO BID [facility] Last Admin: 04/29/18 08:59 Dose: 6.25 mg Cetirizine HCl (Zyrtec*) 10 mg PO QPM [facility] Last Admin: 04/28/18 17:36 Dose: 10 mg Cholecalciferol (Vitamin D Tab*) 2,000 units PO DAILY [facility] Last Admin: 04/29/18 08:58 Dose: 2,000 units Fluticasone Propionate (Flonase Nasal [place] 50mcg*) 2 spray BOTH NARES DAILY [facility] Last Admin: 04/29/18 08:58 Dose: 2 spray Hydromorphone HCl (Dilaudid Inj*) 1 mg IV SLOW PU Q4H PRN PRN Reason: PAIN - BREAKTHROUGH Last Admin: 04/29/18 06:38 Dose: 1 mg Hydromorphone HCl (Dilaudid Tab*) 4 mg PO TID PRN PRN Reason: PAIN Last Admin: 04/27/18 19:31 Dose: 4 mg Hydroxychloroquine Sulfate (Plaquenil Tab*) 400 mg PO DAILY [facility] Last Admin: 04/29/18 08:59 Dose: 400 mg Sodium Chloride (Ns 0.9% 1000 Ml*) 1,000 mls @ 75 mls/hr IV PER RATE [facility] Last Admin: 04/29/18 04:10 Dose: 75 mls/hr Piperacillin Sod/Tazobactam (Sod 3.375 gm/ Sodium Chloride) 100 mls @ 25 mls/ hr IVPB Q8H [facility] Last Admin: 04/29/18 08:55 Dose: 25 mls/hr Loperamide HCl (Imodium Cap*) 2 mg PO DAILY PRN PRN Reason: DIARRHEA Magnesium Hydroxide (Milk Of Magnesia Liq*) 30 ml PO Q4H PRN PRN Reason: CONSTIPATION Mometasone Furoate/Formoterol Fumar (Dulera 100/5 Mdi*) 2 puff INH BID [facility] Last Admin: 04/29/18 08:15 Dose: 2 puff Ondansetron HCl (Zofran 40 Mg Vial*) 4 mg IV Q4H PRN PRN Reason: NAUSEA/VOMITING Last Admin: 04/28/18 12:19 Dose: 4 mg Pantoprazole Sodium (Protonix Iv*) 40 mg IV Q24H [facility] Last Admin: 04/28/18 17:36 Dose: 40 mg Prednisone (Deltasone Tab*) 7.5 mg PO DAILY [facility] Last Admin: 04/29/18 08:59 Dose: 7.5 mg Sertraline HCl (Zoloft*) 75 mg PO DAILY [facility] Last Admin: 04/29/18 08:58 Dose: 75 mg Sodium Chloride (Sodium Chloride(Inhalant)0.9%*) 5 ml INH BID [facility] Last Admin: 04/29/18 08:15 Dose: 5 ml Vitamin B Complex/Vitamin E (B Complex-50*) 1 tab PO DAILY [facility] Last Admin: 04/29/18 08:59 Dose: 1 tab Vital Signs - 8 hr 04/29/18 04/29/18 04/29/18 03:05 06:38 07:36 Temperature 98.2 F 97.9 F Pulse Rate 88 89 Respiratory 16 18 20 Rate Blood Pressure 137/60 112/52 (mmHg) O2 Sat by Pulse 96 94 Oximetry 04/29/18 04/29/18 08:19 09:02 Temperature Pulse Rate 88 Respiratory 16 20 Rate Blood Pressure (mmHg) O2 Sat by Pulse 94 Oximetry Oxygen Devices in Use Now: Nasal Cannula Appearance: yahairaley female laying in bed in NAD A+Ox3 Eyes: No Scleral Icterus, PERRLA Ears/Nose/Mouth/Throat: NL Teeth, Lips, Gums, Mucous Membranes Moist Neck: NL Appearance and Movements; NL JVP Respiratory: Symmetrical Chest Expansion and Respiratory Effort, Clear to Auscultation Cardiovascular: NL Sounds; No Murmurs; No JVD, RRR, No Edema Abdominal: NL Sounds; No Tenderness; No Distention Extremities: No Edema, No Clubbing, Cyanosis Skin: No Rash or Ulcers, No Nodules or Sclerosis Neurological: Alert and Oriented x 3, NL Sensation, NL Muscle Strength and Tone Lines/Tubes/Other Access: Clean, Dry and Intact Peripheral IV Nutrition: Taking PO's Result Diagrams: 04/29/18 05:50 04/29/18 05:50 Assess/Plan/Problems-Billing Assessment: 82 yo female with a PMH of HTN, 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 No signs of acute abdomen or Sepsis. No further bloody BMs, overall improving. - Continues to have diffuse abdominal pain, exacerbated by movement but this is also improving. - Appreciate GI consult; unprepped colonoscopy with Dr. Lee 04/28 showing clots, no signs of ischemia noted - ok to DC abx/ F/u with GI in 3-4 weeks. - HH stable. - Continue pain control (2) Bronchiectasis Comment: - Chronic Hx - Follows with Dr. Brown - Continues home meds, Inhalers - Currently requiring supplemental O2 2L - most likely from pain and breathing shalllow. O2 85% on RA. Obtain chest xray. -Continue flutter valve. (3) Autoimmune disorder Comment: Continue plaquenil and prednisone. (4) Hypertension Comment: Controlled. Continue Coreg home dose 6.25 mg BID (5) DVT prophylaxis Comment: SCDs in the setting of GI bleeding (6) Full code status Status and Disposition: inpatient. Most likely will go home when medically stable.
--- NOTE | 2018-04-29 14:47 | RAD ---
Indication: Hypoxia. 2 views of the chest including dual energy PA views demonstrates cardiomegaly. Bilateral pleural effusions are noted. No evidence of alveolar consolidation is noted. Bibasilar atelectasis is noted. IMPRESSION: Streaky densities in the lung bases consistent with bibasilar atelectasis.
--- NOTE | 2018-04-29 14:48 | PRO ---
DATE: 04/28/18 - ROOM #452 REFERRING PHYSICIANS: Eliana Lowe, Efrain Gaspar.* PROCEDURE: Colonoscopy to mid transverse colon and biopsy of transverse colon INDICATION: This 82-year-old woman began with abdominal pain in the middle of the night on 04/27/18. When she came to the emergency room, it was described as more epigastric pain and there was a question of an acute coronary syndrome or a vascular catastrophe. She therefore underwent a CTA. It was not diagnostic. 8-10 hours later she started passing frankly blood stool. 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 She has not had any fever or vomiting and her white count has fallen back into the normal range from a height of 13 yesterday afternoon. Informed consent was obtained ENDOSCOPIST: Dr. Lee. MEDICATIONS: See conscious sedation sheet. FINDINGS: She is a slender, older woman appearing chronically ill with a pasty complexion, in no acute distress. Bowel sounds are positive. Her abdomen is symmetric. There is some diffuse deep tenderness, though nothing very focal. Perianal inspection and rectal show dark clotted cores of blood. Initial views show cores of blood but no diarrheal effluent per se. The mucosa appears normal. There is a fair amount of this bloody material, clotted, old, and nothing fresh. Diverticular disease is seen at about 20 cm and is quite extensive and gnarled for about 20 to 25 cm. Then, the descending and most of the transverse is transited. There was increasing amount of adherent blood. The mucosa appears slightly granular and erythematous. Lavage has trouble dislodging the blood that is adherent. Two biopsies were taken in the mid transverse. There are no erosions grossly or ulcerations. No gross edema. On slow withdrawal, there were no additional findings. No fresh blood was seen. IMPRESSION: 1. Extensive diverticular disease, sigmoid colon. 2. Lower gastrointestinal bleed - apparently, as the hemoglobin has not fallen much and the BUN has been stable. Ischemic colitis of the proximal bowel is suspected, though not confirmed by this exam. As she has clinically stopped bleeding, she has not been running a fever, and her blood count is stable, no further studies are planned at the moment other than following CBCs and plain films. [id number]/[facility] #: [id number] [facility] [place]
[2018-04-29] MEDS: Cetirizine* 10 MG TAB PO SCH (17:53)
[2018-04-29] MEDS: Pantoprazole IV* 40 MG IV SCH (17:53)
[2018-04-29] MEDS: Amitriptyline TAB* 10 MG PO SCH (20:42)
[2018-04-30] MEDS: HYDROmorphone INJ* 2 MG/ML CARPUJECT SYRINGE IV SLOW PU PRN ×2 (00:42→23:51)
[2018-04-30] MEDS: Piperacillin/Tazobac ADVAN(*) 3.375 GM in NS 0.9% 100 ML* 100 ML IVPB SCH (00:42)
[2018-04-30 06:16] LABS: ABS Basophils 0 10^3/ul (0-0.2); ABS Eosinophils 0.2 10^3/ul (0-0.6); ABS Lymphocytes 0.6 10^3/ul (1.0-4.8); ABS Monocytes 0.6 10^3/ul (0-0.8); ABS Neutrophils 4.3 10^3/ul (1.5-7.7); ABS Nucleated RBC 0 10^3/ul; Eosinophil % 3.5 % (0-6); Hematocrit 33 % (35-47); Hemoglobin 11.2 g/dl (12.0-16.0); Lymphocyte % 9.8 % (25-47); Mean Corpuscular HGB Conc 34 g/dl (31-36); Mean Corpuscular Hemoglobin 33 pg (27-31); Mean Corpuscular Volume 96 fL (80-97); Mean Platelet Volume 8.6 um3 (7.4-10.4); Nucleated Red Blood Cells % 0; Platelet Count 160 10^3/ul (150-450); Red Blood Count 3.43 10^6/ul (4.0-5.4); Red Cell Distribution Width 13 % (10.5-15); White Blood Count 5.8 10^3/ul (3.5-10.8)
[2018-04-30 06:34] LABS: EGFR Non-African American 117.5 (>60)
[2018-04-30] MEDS: Sodium Chloride(INHALANT)0.9%* 5 ML NEB.SOLN INH SCH ×2 (07:41→19:53)
[2018-04-30] MEDS: Mometasone/Formoter 100/5 MDI INH SCH ×2 (07:43→19:53)
--- NOTE | 2018-04-30 08:38 | ED ---
Rayshawn Neal Stephanie, scribed for Abdi Abdullahi MD on 04/27/18 at 0724 . Abdominal Pain/Female - HPI Summary HPI Summary: The pt is an 82 y/o F BIBA to the ED with c/o abd pain that began at 04:00 when she woke up. The abd pain is located at the upper abdomen and radiates into her back. Symptoms include diaphoresis and nausea. At its worst, pain was rated as a 10 in severity. She denies pain with breathing or deep breaths. The pt states she currently feels decreased pain compared to at onset. 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 - History of Current Complaint Chief Complaint: EDAbdPain Stated Complaint: ABD PAIN Time Seen by Provider: 04/27/18 07:13 Hx Obtained From: Patient ?: No Onset/Duration: Sudden Onset, Lasting Hours - 3, Still Present Timing: Constant Severity Initially: Severe Severity Currently: Moderate Pain Intensity: 7 Pain Scale Used: 0-10 Numeric Location: Epigastric Radiates: Yes Radiates to: Back Aggravating Factor(s): Nothing Alleviating Factor(s): Nothing Associated Signs and Symptoms: Positive: Diaphoresis, Nausea Allergies/Adverse Reactions: Allergies Allergy/AdvReac Type Severity Reaction Status Date / Time valsartan Allergy Coughing Verified 04/08/18 15:45 morphine AdvReac See Comment Verified 04/08/18 15:45 Home Medications: Home Medications Albuterol HFA INHALER* [Ventolin HFA Inhaler*] 2 puff INH Q4H PRN 04/27/18 [ History Confirmed 04/27/18] Amitriptyline TAB* [Elavil TAB*] 40 mg PO BEDTIME 04/27/18 [History Confirmed ] Ascorbic Acid TAB* [Vitamin C TAB*] 1,000 mg PO DAILY 04/27/18 [History Confirmed 04/27/18] Cholecalciferol TAB* [Vitamin D TAB*] 2,000 units PO DAILY 04/27/18 [History Confirmed 04/27/18] LevoCETirizine TAB (NF) [Xyzal TAB (NF)] 5 mg PO DAILY 04/27/18 [History Confirmed 04/27/18] Risedronate (NF) [Actonel (NF)] 35 mg PO WEEKLY 04/27/18 [History Confirmed 04/09] Sodium Chloride(INHALANT)0.9%* 5 ml INH BID 04/27/18 [History Confirmed 04/27/18 ] Vit C/E/Zn/Coppr/Lutein/Zeaxan [Preservision Areds 2 Softgel] 1 cap PO BID 04/27 [History Confirmed 04/27/18] Vitamin B Complex TAB* [B Complex-50*] 1 tab PO DAILY 04/27/18 [History Confirmed 04/27/18] PMH/Surg Hx/FS Hx/Imm Hx Endocrine/Hematology History: Reports: Other Endocrine/Hematological Disorders - Raynaud's Denies: Hx Diabetes Cardiovascular History: Reports: Hx Valvular Heart Disease - mitral valve disorder, Other Cardiovascular Problems/Disorders - cardiomyopathy; Denies: Hx Hypertension, Hx Pacemaker/ICD Respiratory History: Reports: Hx Asthma, Other Respiratory Problems/Disorders - HX OF BRONCHIECTASIS GI History: Reports: Hx Gastroesophageal Reflux Disease, Other GI Disorders - change in bowel habits History: Reports: Other Problems/Disorders - interstitial cystitis Denies: Hx Renal Disease Musculoskeletal History: Reports: Hx Back Problems, Hx Osteoporosis, Other Musculoskeletal History - degenerative joint disease Sensory History: Denies: Hx Hearing Aid Neurological History: Reports: Other Neuro Impairments/Disorders - PAIN CLINIC PT. 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 TUBE IN RIGHT EAR Infectious Disease History: Yes Infectious Disease History: Denies: Traveled Outside the [place] in Last 30 Days - Family History Known Family History: Negative: Renal Disease - Social History Occupation: Retired Lives: Alone Alcohol Use: Daily Alcohol Amount: 2 oz wine daily Hx Substance Use: No Substance Use Type: Reports: None Hx Tobacco Use: No Smoking Status (MU): Never Smoked Tobacco Have You Smoked in the Last Year: No Review of Systems Positive: Skin Diaphoresis. Negative: Fever, Chills Negative: Erythema Negative: Sore Throat Negative: Chest Pain Respiratory: Negative - dyspnea Negative: Shortness Of Breath, Cough Positive: Abdominal Pain, Nausea. Negative: Vomiting Negative: dysuria, hematuria Negative: Myalgia, Edema Negative: Rash Neurological: Negative - dizziness Negative: Slurred Speech All Other Systems Reviewed And Are Negative: Yes Physical Exam - Summary Physical Exam Summary: Constitutional: Well-developed, Well-nourished, Alert. (-) Distressed Skin: Warm, Dry HENT: Normocephalic; Atraumatic Eyes: Conjunctiva normal Neck: Musculoskeletal ROM normal neck. (-) JVD, (-) Stridor, (-) Tracheal deviation Cardio: Rhythm regular, rate normal, Heart sounds normal; Intact distal pulses; The pedal pulses are 2+ and symmetric. Radial pulses are 2+ and symmetric. (-) Murmur Pulmonary/Chest wall: Effort normal. (-) Respiratory distress, (-) Wheezes, (-) Rales Abd: Soft, mild epigastric tenderness, (-) Distension, (-) Guarding, (-) Rebound Musculoskeletal: (-) Edema Lymph: (-) Cervical adenopathy Neuro: Alert, Oriented x3 Psych: Mood and affect Normal Triage Information Reviewed: Yes Vital Signs On Initial Exam: Initial Vitals Temp Pulse Resp BP Pulse Ox 97.5 F 86 20 176/83 97 04/27/18 06:36 04/27/18 06:36 04/27/18 06:36 04/27/18 06:36 04/27/18 06:36 Vital Signs Reviewed: Yes Diagnostics - Vital Signs Vital Signs Temp Pulse Resp BP Pulse Ox 04/27/18 06:36 97.5 F 86 20 176/83 97 - Laboratory Result Diagrams: 04/27/18 07:25 04/27/18 07:25 Lab Statement: Any lab studies that have been ordered have been reviewed, and results considered in the medical decision making process. - Radiology CXR Xray Interpretation: No Acute Changes Radiology Interpretation Completed By: Radiologist - NO ACTIVE CARDIOPULMONARY DISEASE. ED physician has reviewed this report. - CT Chest/Abdomen/Pelvis CTA CT Interpretation: No Acute Changes CT Interpretation Completed By: Radiologist - 1. Normal and age-appropriate CT arteriography as described above. There is no sign of pathologic aneurysmal dilatation or acute aortic dissection. 2. Evaluation of the gastrointestinal tract is limited without oral contrast, but CT findings are compatible with enteritis involving the small bowel of the low midline abdomen. 3. Additional chronic, degenerative and iatrogenic findings described in the body the report. ED physician has reviewed this report. - EKG 07:12 Cardiac Rate: NL EKG Rhythm: Sinus Rhythm - [address] Segment: Normal Ectopy: None - Additional Comments Diagnostic Additional Comments: Gallbladder US reveals: NO ACUTE SONOGRAPHIC PATHOLOGY OF THE VISUALIZED PORTION OF THE ABDOMEN. ED physician has reviewed this report. Re-Evaluation - Re-Evaluation First Eval Re-Evaluation Time: 09:17 Change: Worse - The pt is reporting 8 out of 10 substernal and epigastric discomfort. She is still nontender upon re-eval. Abdominal Pain Fem Course/Dx - Course Course Of Treatment: Given the pts connective tissue disorder, HTN and description of symptoms ED physician will consider aortic aneurism. - Diagnoses Provider Diagnoses: Chest pain, unspecified, Epigastric pain, Hypertensive urgency - Provider Notifications Discussed Care Of Patient With: Ovi Andrea Time Discussed With Above Provider: 09:41 Instructed by Provider To: Admit As Inpatient Discharge - Sign-Out/Discharge Documenting (check all that apply): Discharge/Admit/Transfer - Admit - Discharge Plan Condition: Stable Disposition: ADMITTED TO [facility] documentation as recorded by the Rayshawn alcaraz Stephanie accurately reflects the service I personally performed and the decisions made by me, Abdi Abdullahi MD.
[2018-04-30] MEDS ORDERED: Lactobacillus Acidophilus* 1 TAB PO SCH (09:00)
[2018-04-30] MEDS ORDERED: Potassium Chlor TAB* 20 MEQ TAB.ER PO ONE (09:00)
[2018-04-30] MEDS: Hydroxychloroquine TAB* 200 MG PO SCH (09:09)
[2018-04-30] MEDS: Sertraline* 25 MG TAB PO SCH (09:10)
[2018-04-30] MEDS: Cholecalciferol TAB* 1000 UNITS PO SCH (09:10)
[2018-04-30] MEDS: Ascorbic Acid TAB* 500 MG PO SCH (09:11)
[2018-04-30] MEDS: predniSONE TAB* 5 MG PO SCH (09:11)
[2018-04-30] MEDS: Fluticasone NASAL SPRAY 50MCG* 16 gm SPRAY BTL BOTH NARES SCH (09:13)
[2018-04-30] MEDS: Vitamin B Complex TAB PO SCH (09:13)
[2018-04-30] MEDS: Aspirin EC TAB* 81 MG TAB.EC PO SCH (09:13)
[2018-04-30] MEDS: Carvedilol TAB* 6.25 MG PO SCH ×2 (09:13→20:16)
[2018-04-30] MEDS: Al Hydrox/Mg Hydrox/Simet LIQ* 30 ML UDC PO PRN (10:51)
[2018-04-30] MEDS ORDERED: Omeprazole CAP* 20 MG PO ONE (12:11)
--- NOTE | 2018-04-30 13:59 | PN ---
Subjective Date of Service: 04/30/18 Interval History: Patient reports she has developed loose, watery diarrhea starting this morning stating she has had 14 loose stools today that are brown/green/watery and explosive. Reports abdominal pain has improved but still reports generalized abdominal pain. No N/V. Reports today she now has developed abdominal bloating. No fever or chills. Reports poor appetite but has been eating her clear liquid diet. Continues to report generalized weakness but states she is better than admission. Objective Active Medications: Acetaminophen (Tylenol Tab*) 650 mg PO Q4H PRN PRN Reason: FEVER/PAIN Al Hydrox/Mg Hydrox/Simethicone (Maalox Plus*) 30 ml PO Q6H PRN PRN Reason: INDIGESTION Last Admin: 04/30/18 10:51 Dose: 30 ml Albuterol (Ventolin Hfa Inhaler*) 2 puff INH Q4H PRN PRN Reason: SOB/WHEEZING Last Admin: 04/29/18 15:59 Dose: 2 puff Amitriptyline HCl (Elavil Tab*) 40 mg PO BEDTIME [facility] Last Admin: 04/29/18 20:42 Dose: 40 mg Ascorbic Acid (Vitamin C Tab*) 1,000 mg PO DAILY [facility] Last Admin: 04/30/18 09:11 Dose: 1,000 mg Aspirin (Aspirin Ec Tab*) 81 mg PO DAILY [facility] Last Admin: 04/30/18 09:13 Dose: 81 mg Carvedilol (Coreg Tab*) 6.25 mg PO BID [facility] Last Admin: 04/30/18 09:13 Dose: 6.25 mg Cetirizine HCl (Zyrtec*) 10 mg PO QPM [facility] Last Admin: 04/29/18 17:53 Dose: 10 mg Cholecalciferol (Vitamin D Tab*) 2,000 units PO DAILY [facility] Last Admin: 04/30/18 09:10 Dose: 2,000 units Fluticasone Propionate (Flonase Nasal [place] 50mcg*) 2 spray BOTH NARES DAILY [facility] Last Admin: 04/30/18 09:13 Dose: 2 spray Hydromorphone HCl (Dilaudid Inj*) 1 mg IV SLOW PU Q4H PRN PRN Reason: PAIN - BREAKTHROUGH Last Admin: 04/30/18 00:42 Dose: 1 mg Hydromorphone HCl (Dilaudid Tab*) 4 mg PO TID PRN PRN Reason: PAIN Last Admin: 04/27/18 19:31 Dose: 4 mg Hydroxychloroquine Sulfate (Plaquenil Tab*) 400 mg PO DAILY [facility] Last Admin: 04/30/18 09:09 Dose: 400 mg Lactobacillus Rhamnosus (Lactobacillus Acidophilus*) 1 tab PO BID [facility] Last Admin: 04/30/18 09:11 Dose: 1 tab Loperamide HCl (Imodium Cap*) 2 mg PO DAILY PRN PRN Reason: DIARRHEA Magnesium Hydroxide (Milk Of Magnesia Liq*) 30 ml PO Q4H PRN PRN Reason: CONSTIPATION Mometasone Furoate/Formoterol Fumar (Dulera 100/5 Mdi*) 2 puff INH BID [facility] Last Admin: 04/30/18 07:43 Dose: 2 puff Omeprazole (Prilosec Cap*) 20 mg PO DAILY@0600 [facility] Ondansetron HCl (Zofran 40 Mg Vial*) 4 mg IV Q4H PRN PRN Reason: NAUSEA/VOMITING Last Admin: 04/28/18 12:19 Dose: 4 mg Prednisone (Deltasone Tab*) 7.5 mg PO DAILY [facility] Last Admin: 04/30/18 09:11 Dose: 7.5 mg Sertraline HCl (Zoloft*) 75 mg PO DAILY [facility] Last Admin: 04/30/18 09:10 Dose: 75 mg Sodium Chloride (Sodium Chloride(Inhalant)0.9%*) 5 ml INH BID [facility] Last Admin: 04/30/18 07:41 Dose: 5 ml Vitamin B Complex/Vitamin E (B Complex-50*) 1 tab PO DAILY [facility] Last Admin: 04/30/18 09:13 Dose: 1 tab Vital Signs - 8 hr 04/30/18 08:14 Temperature 98.2 F Pulse Rate 81 Respiratory 20 Rate Blood Pressure 150/69 (mmHg) O2 Sat by Pulse 100 Oximetry Oxygen Devices in Use Now: Nasal Cannula Appearance: 82 yo female A+Ox3 in NAD Ears/Nose/Mouth/Throat: - - Dry MM Respiratory: Symmetrical Chest Expansion and Respiratory Effort, Clear to Auscultation, - Cardiovascular: NL Sounds; No Murmurs; No JVD, RRR, No Edema Abdominal: - - slightly distended, soft, NL BS. No guarding. 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 unclear etiology. Possibly infectious or antibiotic related? Send stool cx including CDIFF Biopsy from recent colonoscopy negative for pathology. - Strict monitoring of stool output - Pt is stable, she continues to look better compared to a few days ago. Will start IVFs and await stool cx. Discussed with Dr. Sotelo (GI) - who will see the patient tomorrow if not improving. (2) GI bleeding Comment: - Concern for ischemic colitis with diffuse abdominal pain and bloody bowel movements. No signs of acute abdomen or Sepsis. No further bloody BMs - Abdominal pain is improving - Appreciate GI consult; unprepped colonoscopy with Dr. Lee 04/28 showing clots, no signs of ischemia noted - Biopsy showing no pathology. No further abx per GI. F/u with GI in 3-4 weeks. Can discuss if anticoagulation is necessary during f/u with GI as outpt. In the setting of GI bleed not appropriate to start anticoagulation at this time but may require it in the future fo dx of ischemic colitis - however this dx was not proven by colonoscopy/biopsy - HH stable. - Continue pain control (3) Bronchiectasis Comment: - Chronic Hx - Follows with Dr. Brown - Continues home meds, Inhalers - O2 requirements are improving - chest xray 04/29 - showing bilateral atelectasis - lung sounds are improved today -Continue flutter valve. (4) Autoimmune disorder Comment: Continue plaquenil and prednisone. (5) Hypertension Comment: Controlled. Continue Coreg home dose 6.25 mg BID (6) DVT prophylaxis Comment: SCDs in the setting of GI bleeding (7) Full code status Status and Disposition: inpatient. Most likely will go home when medically stable.
[2018-04-30] MEDS: NS 0.9% 1000 ML* 1,000 ML IV SCH (16:08)
[2018-04-30] MEDS: Cetirizine* 10 MG TAB PO SCH (17:37)
[2018-04-30] MEDS: Albuterol HFA INHALER* 8 gm MDI INH PRN (20:06)
[2018-04-30] MEDS: Amitriptyline TAB* 10 MG PO SCH (20:16)
[2018-05-01] MEDS: NS 0.9% 1000 ML* 1,000 ML IV SCH ×2 (03:00→16:11)
[2018-05-01] MEDS: Omeprazole CAP* 20 MG PO SCH (06:26)
[2018-05-01] MEDS: Mometasone/Formoter 100/5 MDI INH SCH ×2 (07:17→20:12)
[2018-05-01] MEDS: Sodium Chloride(INHALANT)0.9%* 5 ML NEB.SOLN INH SCH ×2 (07:19→20:12)
[2018-05-01] MEDS: Hydroxychloroquine TAB* 200 MG PO SCH (09:25)
[2018-05-01] MEDS: Sertraline* 25 MG TAB PO SCH (09:26)
[2018-05-01] MEDS: Carvedilol TAB* 6.25 MG PO SCH ×2 (09:26→21:51)
[2018-05-01] MEDS: Aspirin EC TAB* 81 MG TAB.EC PO SCH (09:26)
[2018-05-01] MEDS: Vitamin B Complex TAB PO SCH (09:26)
[2018-05-01] MEDS: predniSONE TAB* 5 MG PO SCH (09:27)
[2018-05-01] MEDS: Cholecalciferol TAB* 1000 UNITS PO SCH (09:28)
[2018-05-01] MEDS: Fluticasone NASAL SPRAY 50MCG* 16 gm SPRAY BTL BOTH NARES SCH (09:28)
[2018-05-01 10:32] LABS: ABS Basophils 0 10^3/ul (0-0.2); ABS Eosinophils 0.1 10^3/ul (0-0.6); ABS Lymphocytes 0.5 10^3/ul (1.0-4.8); ABS Monocytes 0.6 10^3/ul (0-0.8); ABS Neutrophils 4.5 10^3/ul (1.5-7.7); ABS Nucleated RBC 0 10^3/ul; Eosinophil % 2.5 % (0-6); Hematocrit 35 % (35-47); Hemoglobin 11.7 g/dl (12.0-16.0); Lymphocyte % 8.8 % (25-47); Mean Corpuscular HGB Conc 34 g/dl (31-36); Mean Corpuscular Hemoglobin 32 pg (27-31); Mean Corpuscular Volume 95 fL (80-97); Mean Platelet Volume 8.8 um3 (7.4-10.4); Nucleated Red Blood Cells % 0; Platelet Count 183 10^3/ul (150-450); Red Blood Count 3.64 10^6/ul (4.0-5.4); Red Cell Distribution Width 13 % (10.5-15); White Blood Count 5.8 10^3/ul (3.5-10.8)
[2018-05-01] MEDS: Al Hydrox/Mg Hydrox/Simet LIQ* 30 ML UDC PO PRN (10:32)
[2018-05-01 10:52] LABS: EGFR Non-African American 147.4 (>60)
[2018-05-01] MEDS ORDERED: Magnesium Sulfate 2 GM IV* 2 GM/50 ML BAG IVPB ONE (11:36)
[2018-05-01] MEDS ORDERED: KCL 20 MEQ/100 ML IVPREMIX* 20 MEQ/100 ML BAG IV ONE (11:37)
[2018-05-01] MEDS: HYDROmorphone TAB* 4 MG PO PRN (12:10)
[2018-05-01] MEDS: Acetaminophen TAB* 325 MG PO PRN ×2 (12:10→22:00)
[2018-05-01] MEDS: Ondansetron 40 MG VIAL* 2 MG/ML 20 ML VIAL IV PRN (12:14)
[2018-05-01] MEDS ORDERED: Loperamide CAP* 2 MG PO SCH (13:00)
--- NOTE | 2018-05-01 13:13 | PN ---
Subjective Date of Service: 05/01/18 Interval History: . Overall continues to feel better compared to admission but since yesterday now has abdominal bloating and gas. Diarrhea has improved overnight with only 2 loose stools. Biggest complaint in abdominal bloating. Is feeling more hungry and would like to advance her diet. Continues to have diffuse intermittent abdominal pain but overall reports improvements. No fever or chills. Low grade temp this am which she states is "a fever for me". Feels too weak to go home but reports she feels steady on her feet going to the bathroom and back. Denies feeling SOB, reports she is coughing up sputum but she does this at her baseline. Objective Active Medications: Acetaminophen (Tylenol Tab*) 650 mg PO Q4H PRN PRN Reason: FEVER/PAIN Last Admin: 05/01/18 12:10 Dose: 650 mg Al Hydrox/Mg Hydrox/Simethicone (Maalox Plus*) 30 ml PO Q6H PRN PRN Reason: INDIGESTION Last Admin: 05/01/18 10:32 Dose: 30 ml Albuterol (Ventolin Hfa Inhaler*) 2 puff INH Q4H PRN PRN Reason: SOB/WHEEZING Last Admin: 04/30/18 20:06 Dose: 2 puff Amitriptyline HCl (Elavil Tab*) 40 mg PO BEDTIME [facility] Last Admin: 04/30/18 20:16 Dose: 40 mg Aspirin (Aspirin Ec Tab*) 81 mg PO DAILY [facility] Last Admin: 05/01/18 09:26 Dose: 81 mg Carvedilol (Coreg Tab*) 6.25 mg PO BID [facility] Last Admin: 05/01/18 09:26 Dose: 6.25 mg Cetirizine HCl (Zyrtec*) 10 mg PO QPM [facility] Last Admin: 04/30/18 17:37 Dose: 10 mg Cholecalciferol (Vitamin D Tab*) 2,000 units PO DAILY [facility] Last Admin: 05/01/18 09:28 Dose: 2,000 units Fluticasone Propionate (Flonase Nasal [place] 50mcg*) 2 spray BOTH NARES DAILY [facility] Last Admin: 05/01/18 09:28 Dose: 2 spray Hydromorphone HCl (Dilaudid Inj*) 1 mg IV SLOW PU Q4H PRN PRN Reason: PAIN - BREAKTHROUGH Last Admin: 04/30/18 23:51 Dose: 1 mg Hydromorphone HCl (Dilaudid Tab*) 4 mg PO TID PRN PRN Reason: PAIN Last Admin: 05/01/18 12:10 Dose: 4 mg Hydroxychloroquine Sulfate (Plaquenil Tab*) 400 mg PO DAILY [facility] Last Admin: 05/01/18 09:25 Dose: 400 mg Potassium Chloride (Potassium Chloride 20 Meq/100 Ml Ivpremix*) 20 meq in 100 mls @ 50 mls/hr IV ONCE ONE Stop: 05/01/18 13:36 Last Admin: 05/01/18 12:35 Dose: 50 mls/hr Sodium Chloride (Ns 0.9% 1000 Ml*) 1,000 mls @ 75 mls/hr IV PER RATE [facility] Stop: 05/02/18 13:11 Loperamide HCl (Imodium Cap*) 2 mg PO Q4HR PRN PRN Reason: DIARRHEA Mometasone Furoate/Formoterol Fumar (Dulera 100/5 Mdi*) 2 puff INH BID [facility] Last Admin: 05/01/18 07:17 Dose: 2 puff Omeprazole (Prilosec Cap*) 20 mg PO DAILY@0600 [facility] Last Admin: 05/01/18 06:26 Dose: 20 mg Ondansetron HCl (Zofran 40 Mg Vial*) 4 mg IV Q4H PRN PRN Reason: NAUSEA/VOMITING Last Admin: 05/01/18 12:14 Dose: 4 mg Potassium Chloride (Klor Con Er Tab*) 20 meq PO TID [facility] Stop: 05/02/18 13:59 Prednisone (Deltasone Tab*) 7.5 mg PO DAILY [facility] Last Admin: 05/01/18 09:27 Dose: 7.5 mg Sertraline HCl (Zoloft*) 75 mg PO DAILY [facility] Last Admin: 05/01/18 09:26 Dose: 75 mg Sodium Chloride (Sodium Chloride(Inhalant)0.9%*) 5 ml INH BID [facility] Last Admin: 05/01/18 07:19 Dose: 5 ml Vitamin B Complex/Vitamin E (B Complex-50*) 1 tab PO DAILY [facility] Last Admin: 05/01/18 09:26 Dose: 1 tab Vital Signs - 8 hr 05/01/18 05/01/18 05/01/18 07:38 07:42 07:56 Temperature 99.3 F Pulse Rate 88 Respiratory 18 18 17 Rate Blood Pressure 150/69 (mmHg) O2 Sat by Pulse 94 Oximetry 05/01/18 05/01/18 12:09 12:10 Temperature Pulse Rate Respiratory 18 18 Rate Blood Pressure (mmHg) O2 Sat by Pulse Oximetry Oxygen Devices in Use Now: Nasal Cannula Appearance: elderly female A+O x3 Eyes: No Scleral Icterus, PERRLA Ears/Nose/Mouth/Throat: NL Teeth, Lips, Gums, - - dry MM Neck: NL Appearance and Movements; NL JVP Respiratory: Symmetrical Chest Expansion and Respiratory Effort, Clear to Auscultation Cardiovascular: NL Sounds; No Murmurs; No JVD, RRR, No Edema Abdominal: - - distended, soft, hyperactive BS. generalized mild tenderness with palpation, no guarding Extremities: No Edema, No Clubbing, Cyanosis Skin: No Rash or Ulcers, No Nodules or Sclerosis Neurological: Alert and Oriented x 3, NL Sensation, NL Gait, NL Muscle Strength and Tone Lines/Tubes/Other Access: Clean, Dry and Intact Peripheral IV Nutrition: Taking PO's Result Diagrams: 05/01/18 09:54 05/01/18 09:55 Microbiology and Other Data: Microbiology 04/30/18 19:40 Stool Gross Appearance - Final Stool C. 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 unclear etiology. Possibly ischemic colitis vs infectious vs antibiotic related? - Negative CDiff - stool cx pending. - Biopsy from recent colonoscopy negative for pathology. - Pt is stable, she continues to look better compared to a few days ago. Continue IVFs. - Discussed with Dr. Sotelo (GI) again this am who recommends restarting pts imodium, possibly functional diarrhea - start simethacone for abd bloating - continue gentle IVFs (2) GI bleeding Comment: - Concern for ischemic colitis with diffuse abdominal pain and bloody bowel movements. No signs of acute abdomen or Sepsis. No further bloody BMs - Abdominal pain is improving - Appreciate GI consult; unprepped colonoscopy with Dr. Lee 04/28 showing clots, no signs of ischemia noted - Biopsy showing no pathology. No further abx per GI. F/u with GI in 3-4 weeks. Can discuss if anticoagulation is necessary during f/u with GI as outpt. In the setting of GI bleed not appropriate to start anticoagulation at this time but may require it in the future fo dx of ischemic colitis - however this dx was not proven by colonoscopy/biopsy - HH stable. - Continue pain control (3) Bronchiectasis Comment: - Chronic Hx - Follows with Dr. Brown - Continues home meds, Inhalers - O2 requirements are improving - chest xray 04/29 - showing bilateral atelectasis - lung sounds are improved today -Continue flutter valve. (4) Autoimmune disorder Comment: Continue plaquenil and prednisone. (5) Hypertension Comment: Controlled. Continue Coreg home dose 6.25 mg BID (6) DVT prophylaxis Comment: SCDs in the setting of GI bleeding (7) Full code status Status and Disposition: inpatient. Most likely will go home when medically stable.
[2018-05-01] MEDS ORDERED: [UNRECOGNIZED DRUG - OTHER] TOPICAL PRN (13:56)
[2018-05-01] MEDS: Potassium Chlor TAB* 20 MEQ TAB.ER PO SCH ×2 (16:06→21:49)
[2018-05-01] MEDS: Cetirizine* 10 MG TAB PO SCH (18:11)
[2018-05-01] MEDS: Simethicone TAB* 80 MG TAB.CHEW PO PRN (18:11)
[2018-05-01] MEDS: Albuterol HFA INHALER* 8 gm MDI INH PRN (20:11)
[2018-05-01] MEDS: Amitriptyline TAB* 10 MG PO SCH (21:49)
[2018-05-01] MEDS: Lactobacillus Acidophilus* 1 TAB PO SCH (21:49)
[2018-05-02] MEDS: Omeprazole CAP* 20 MG PO SCH (05:26)
[2018-05-02 06:31] LABS: ABS Basophils 0 10^3/ul (0-0.2); ABS Eosinophils 0.2 10^3/ul (0-0.6); ABS Lymphocytes 0.7 10^3/ul (1.0-4.8); ABS Monocytes 0.8 10^3/ul (0-0.8); ABS Neutrophils 3.5 10^3/ul (1.5-7.7); ABS Nucleated RBC 0 10^3/ul; Eosinophil % 3.3 % (0-6); Hematocrit 34 % (35-47); Hemoglobin 11.7 g/dl (12.0-16.0); Lymphocyte % 12.8 % (25-47); Mean Corpuscular HGB Conc 35 g/dl (31-36); Mean Corpuscular Hemoglobin 33 pg (27-31); Mean Corpuscular Volume 94 fL (80-97); Mean Platelet Volume 8.6 um3 (7.4-10.4); Nucleated Red Blood Cells % 0; Platelet Count 191 10^3/ul (150-450); Red Blood Count 3.58 10^6/ul (4.0-5.4); Red Cell Distribution Width 13 % (10.5-15); White Blood Count 5.1 10^3/ul (3.5-10.8)
[2018-05-02 06:41] LABS: EGFR Non-African American 122.9 (>60)
[2018-05-02] MEDS: HYDROmorphone TAB* 4 MG PO PRN ×2 (06:54→19:23)
[2018-05-02] MEDS: Albuterol HFA INHALER* 8 gm MDI INH PRN ×2 (07:21→19:15)
[2018-05-02] MEDS: Mometasone/Formoter 100/5 MDI INH SCH ×2 (07:28→20:09)
[2018-05-02] MEDS: Sodium Chloride(INHALANT)0.9%* 5 ML NEB.SOLN INH SCH ×2 (07:28→20:08)
[2018-05-02] MEDS: Hydroxychloroquine TAB* 200 MG PO SCH (08:16)
[2018-05-02] MEDS: Cholecalciferol TAB* 1000 UNITS PO SCH (08:16)
[2018-05-02] MEDS: Fluticasone NASAL SPRAY 50MCG* 16 gm SPRAY BTL BOTH NARES SCH (08:17)
[2018-05-02] MEDS: Lactobacillus Acidophilus* 1 TAB PO SCH ×2 (08:17→19:15)
[2018-05-02] MEDS: Sertraline* 25 MG TAB PO SCH (08:17)
[2018-05-02] MEDS: predniSONE TAB* 5 MG PO SCH (08:18)
[2018-05-02] MEDS: Aspirin EC TAB* 81 MG TAB.EC PO SCH (08:18)
[2018-05-02] MEDS: Vitamin B Complex TAB PO SCH (08:19)
[2018-05-02] MEDS: Potassium Chlor TAB* 20 MEQ TAB.ER PO SCH (08:19)
[2018-05-02] MEDS: Carvedilol TAB* 6.25 MG PO SCH ×2 (08:19→19:15)
[2018-05-02] MEDS: NS 0.9% 1000 ML* 1,000 ML IV SCH (08:20)
--- NOTE | 2018-05-02 09:20 | PN ---
Subjective Date of Service: 05/02/18 Interval History: Pt reports she had three loose water brown BMs this am. No blood noted. Denies abdominal pain reporting that it has resolved. Reports she is eating and tolerating her diet. She does reports she ate "eggs and took a sip of water and threw it right up" stating this has happened one other time at home a few months ago, she was able to tolerate lunch w/o any incident. She continues to feel like she has abdominal bloating. not passing a lot of gas. Feels a little SOB today and relates this to her diaphragm pushing up on her lungs. Reports cough and sputum production but states this has improved since the last few days and she has this at her baseline. Denies fever or chills. No CP. Objective Active Medications: Acetaminophen (Tylenol Tab*) 650 mg PO Q4H PRN PRN Reason: FEVER/PAIN Last Admin: 05/01/18 22:00 Dose: 650 mg Al Hydrox/Mg Hydrox/Simethicone (Maalox Plus*) 30 ml PO Q6H PRN PRN Reason: INDIGESTION Last Admin: 05/01/18 10:32 Dose: 30 ml Albuterol (Ventolin Hfa Inhaler*) 2 puff INH Q4H PRN PRN Reason: SOB/WHEEZING Last Admin: 05/02/18 07:21 Dose: 2 puff Amitriptyline HCl (Elavil Tab*) 40 mg PO BEDTIME [facility] Last Admin: 05/01/18 21:49 Dose: 40 mg Aspirin (Aspirin Ec Tab*) 81 mg PO DAILY [facility] Last Admin: 05/02/18 08:18 Dose: 81 mg Carvedilol (Coreg Tab*) 6.25 mg PO BID [facility] Last Admin: 05/02/18 08:19 Dose: 6.25 mg Cetirizine HCl (Zyrtec*) 10 mg PO QPM [facility] Last Admin: 05/01/18 18:11 Dose: 10 mg Cholecalciferol (Vitamin D Tab*) 2,000 units PO DAILY [facility] Last Admin: 05/02/18 08:16 Dose: 2,000 units Fluticasone Propionate (Flonase Nasal [place] 50mcg*) 2 spray BOTH NARES DAILY [facility] Last Admin: 05/02/18 08:17 Dose: 2 spray Hydromorphone HCl (Dilaudid Inj*) 1 mg IV SLOW PU Q4H PRN PRN Reason: PAIN - BREAKTHROUGH Last Admin: 04/30/18 23:51 Dose: 1 mg Hydromorphone HCl (Dilaudid Tab*) 4 mg PO TID PRN PRN Reason: PAIN Last Admin: 05/02/18 06:54 Dose: 4 mg Hydroxychloroquine Sulfate (Plaquenil Tab*) 400 mg PO DAILY [facility] Last Admin: 05/02/18 08:16 Dose: 400 mg Sodium Chloride (Ns 0.9% 1000 Ml*) 1,000 mls @ 75 mls/hr IV PER RATE [facility] Stop: 05/02/18 13:11 Last Admin: 05/02/18 08:20 Dose: 75 mls/hr Lactobacillus Rhamnosus (Lactobacillus Acidophilus*) 1 tab PO BID [facility] Last Admin: 05/02/18 08:17 Dose: 1 tab Loperamide HCl (Imodium Cap*) 2 mg PO Q4H PRN PRN Reason: DIARRHEA Mometasone Furoate/Formoterol Fumar (Dulera 100/5 Mdi*) 2 puff INH BID [facility] Last Admin: 05/02/18 07:28 Dose: 2 puff Therabreath Lozenges 1 dose TOPICAL . NEEDED PRN PRN Reason: DRY MOUTH Omeprazole (Prilosec Cap*) 20 mg PO DAILY@0600 [facility] Last Admin: 05/02/18 05:26 Dose: 20 mg Ondansetron HCl (Zofran 40 Mg Vial*) 4 mg IV Q4H PRN PRN Reason: NAUSEA/VOMITING Last Admin: 05/01/18 12:14 Dose: 4 mg Potassium Chloride (Klor Con Er Tab*) 20 meq PO TID [facility] Stop: 05/02/18 13:59 Last Admin: 05/02/18 08:19 Dose: 20 meq Prednisone (Deltasone Tab*) 7.5 mg PO DAILY [facility] Last Admin: 05/02/18 08:18 Dose: 7.5 mg Sertraline HCl (Zoloft*) 75 mg PO DAILY [facility] Last Admin: 05/02/18 08:17 Dose: 75 mg Simethicone (Mylicon Tab*) 80 mg PO Q6H PRN PRN Reason: INDIGESTION Last Admin: 05/01/18 18:11 Dose: 80 mg Sodium Chloride (Sodium Chloride(Inhalant)0.9%*) 5 ml INH BID [facility] Last Admin: 05/02/18 07:28 Dose: 5 ml Vitamin B Complex/Vitamin E (B Complex-50*) 1 tab PO DAILY [facility] Last Admin: 05/02/18 08:19 Dose: 1 tab Vital Signs - 8 hr 05/02/18 05/02/18 05/02/18 03:55 06:54 07:31 Temperature 97.5 F Pulse Rate 85 88 Respiratory 20 19 14 Rate Blood Pressure 147/70 (mmHg) O2 Sat by Pulse 92 90 Oximetry 05/02/18 05/02/18 07:50 08:00 Temperature 98.1 F Pulse Rate 89 Respiratory 15 18 Rate Blood Pressure 152/75 (mmHg) O2 Sat by Pulse 89 Oximetry Oxygen Devices in Use Now: Nasal Cannula Appearance: well developed 82 yo female sitting up on the side of the bed in NAD. A+Ox3 Eyes: No Scleral Icterus, PERRLA Ears/Nose/Mouth/Throat: Mucous Membranes Moist Neck: NL Appearance and Movements; NL JVP Respiratory: Symmetrical Chest Expansion and Respiratory Effort, - - scattered rhonchi, mild - good areation throughout Cardiovascular: NL Sounds; No Murmurs; No JVD, RRR, No Edema Abdominal: - - mild distention, NL BS, soft, nontender Extremities: No Edema, No Clubbing, Cyanosis Skin: No Rash or Ulcers, No Nodules or Sclerosis Neurological: Alert and Oriented x 3, NL Sensation, NL Gait, NL Muscle Strength and Tone Lines/Tubes/Other Access: Clean, Dry and Intact Peripheral IV Nutrition: Taking PO's Result Diagrams: 05/02/18 06:06 05/02/18 06:06 Microbiology and Other Data: Microbiology 04/30/18 19:40 Stool Gross Appearance - Final Stool C. difficile DNA Amplification - Final 027 Presumptive NEGATIVE Toxigenic C.diff NEGATIVE 04/30/18 17:40 Stool Gross Appearance - Final Stool Assess/Plan/Problems-Billing Assessment: 82 yo female with a PMH of HTN, unknown autoimmune disease as well as collagen disorder on Plaquenil and Prednisone, hx of fibromyalgia rheumatica on chronic pain medications, diastolic dysfunction, who presented to the ER on 04/27 with c/o severe epigastric pain and chest pain who initially was admitted for CP r/o ACS, then after admission had a large bloody bowel movement now there is a concern for possible enteric ischemia - Patient Problems (1) Diarrhea Comment: - Improving but continues to have loose stools. unclear etiology. Possibly ischemic colitis vs infectious vs antibiotic related. - Negative CDiff - stool cx pending. - Biopsy from recent colonoscopy negative for pathology. - Pt is stable, she continues to improve daily - Discussed with Dr. Sotelo (GI) who recommends restarting pts imodium, in which she takes at home for possible functional diarrhea but states this diarrhea is worse - continue simethacone for abd bloating - obtain abdominal xray - start Rifaxamin for possible SIBO and/or IBS-D or antibiotics related diarrhea - DC IVFs - patients chest xray showing a little fluid overload (2) GI bleeding Comment: - Resolved. There was concern for ischemic colitis with diffuse abdominal pain and bloody bowel movements. No signs of acute abdomen or Sepsis - now overall improving. No further bloody BMs. Abdominal pain has resolved. - Appreciate GI consult; unprepped colonoscopy with Dr. Lee 04/28 showing clots, no signs of ischemia noted - Biopsy showing no pathology. No further abx per GI. F/u with GI in 3-4 weeks. Can discuss if anticoagulation is necessary during f/u with GI as outpt. In the setting of GI bleed not appropriate to start anticoagulation at this time but may require it in the future for dx of ischemic colitis - however this dx was not proven by colonoscopy/biopsy - HH stable. (3) Bronchiectasis Comment: - Chronic Hx -cough with sputum production at baseline. Intermittent sputum production - Follows with Dr. Brown - Continues home meds, Inhalers - O2 requirements are improving but continues to reuire 1-2 L NC - chest xray 04/29 - showing bilateral atelectasis - Repeat chest xray 05/02 showing left pleural effusion (small) and possible development of pulmonary edema. At this point she is requiring little supplemental O2, plan to encourage IS/flutter valve and ambulation. Do not want to give lasix in the setting of diarrhea. Do not think this is infectious. Will discuss with Dr. Brown tomorrow (4) Autoimmune disorder Comment: Continue plaquenil and prednisone. (5) Hypertension Comment: Controlled. Continue Coreg home dose 6.25 mg BID (6) DVT prophylaxis Comment: SCDs in the setting of GI bleeding (7) Full code status Status and Disposition: inpatient. Most likely will go home when medically stable.
[2018-05-02] MEDS: Loperamide CAP* 2 MG PO PRN (13:02)
--- NOTE | 2018-05-02 14:02 | RAD ---
INDICATION: Hypoxia COMPARISON: Most recent chest x-rays dated April 29, 2018 TECHNIQUE: PA and lateral views of the chest were obtained. FINDINGS: The heart and mediastinum are normal in size and contour. Similar to the prior chest x-ray the lungs appear hyperaerated in the AP projection and there is flattened diaphragm and increased retrosternal airspace on the lateral view. There is been interval appearance of increased parenchymal density overlying the bilateral lungs as well as left costophrenic angle blunting and density obscuring the posterior costophrenic angle. Visualized bones are normal for the patient's age. There is no radiographic evidence of free air beneath the diaphragm IMPRESSION: CHEST X-RAY FINDINGS ARE MOST INDICATIVE OF INTERVAL DEVELOPMENT OF PULMONARY EDEMA, LIKELY WITH A LEFT LUNG BASE PLEURAL EFFUSION, EXACERBATING A BACKGROUND OF CHRONIC OBSTRUCTIVE PULMONARY DISEASE.
--- NOTE | 2018-05-02 14:04 | RAD ---
INDICATION: Abdominal distention COMPARISON: Most recent radiograph dated April 28, 2018 TECHNIQUE: Supine and upright views of the abdomen were obtained. FINDINGS: On the upright view there are scattered air-fluid levels in the small and large bowel. Gas and stool seen throughout the length of the colon including the rectum. There is no definite free intraperitoneal air. There is no radiographically apparent pathologically dilated loops of bowel. IMPRESSION: Air-fluid levels indicating a degree of bowel dysmotility. There is no evidence of complete bowel obstruction or intraperitoneal gas.
[2018-05-02] MEDS: Simethicone TAB* 80 MG TAB.CHEW PO PRN (15:33)
[2018-05-02] MEDS: Cetirizine* 10 MG TAB PO SCH (17:27)
[2018-05-02] MEDS: RiFAXimin* 550 MG TAB PO SCH (19:15)
[2018-05-02] MEDS: Amitriptyline TAB* 10 MG PO SCH (21:03)
[2018-05-03] MEDS: Omeprazole CAP* 20 MG PO SCH (05:03)
[2018-05-03 06:20] LABS: ABS Basophils 0 10^3/ul (0-0.2); ABS Eosinophils 0.1 10^3/ul (0-0.6); ABS Lymphocytes 0.8 10^3/ul (1.0-4.8); ABS Monocytes 1.1 10^3/ul (0-0.8); ABS Neutrophils 2.7 10^3/ul (1.5-7.7); ABS Nucleated RBC 0 10^3/ul; Hematocrit 35 % (35-47); Hemoglobin 12.1 g/dl (12.0-16.0); Lymphocyte % 15.9 % (25-47); Mean Corpuscular HGB Conc 35 g/dl (31-36); Mean Corpuscular Hemoglobin 33 pg (27-31); Mean Corpuscular Volume 94 fL (80-97); Mean Platelet Volume 8.7 um3 (7.4-10.4); Nucleated Red Blood Cells % 0.1; Platelet Count 210 10^3/ul (150-450); Red Blood Count 3.73 10^6/ul (4.0-5.4); Red Cell Distribution Width 14 % (10.5-15); White Blood Count 4.7 10^3/ul (3.5-10.8)
[2018-05-03] MEDS: HYDROmorphone TAB* 4 MG PO PRN (07:30)
[2018-05-03] MEDS ORDERED: Potassium Chlor TAB* 20 MEQ TAB.ER PO ONE (07:40)
[2018-05-03] MEDS ORDERED: Magnesium Sulfate IV* 3 GM in NS 0.9% 100 ML* 100 ML IVPB ONE (08:00)
[2018-05-03] MEDS ORDERED: NS 0.9% 100 ML* 100 ML ONE (08:18)
[2018-05-03] MEDS: Cholecalciferol TAB* 1000 UNITS PO SCH (08:34)
[2018-05-03] MEDS: Vitamin B Complex TAB PO SCH (08:35)
[2018-05-03] MEDS: Lactobacillus Acidophilus* 1 TAB PO SCH ×2 (08:35→20:39)
[2018-05-03] MEDS: Hydroxychloroquine TAB* 200 MG PO SCH (08:35)
[2018-05-03] MEDS: Sertraline* 25 MG TAB PO SCH (08:35)
[2018-05-03] MEDS: RiFAXimin* 550 MG TAB PO SCH ×2 (08:35→14:31)
[2018-05-03] MEDS: Aspirin EC TAB* 81 MG TAB.EC PO SCH (08:36)
[2018-05-03] MEDS: Carvedilol TAB* 6.25 MG PO SCH ×2 (08:36→20:39)
[2018-05-03] MEDS: predniSONE TAB* 5 MG PO SCH (08:36)
[2018-05-03] MEDS: Sodium Chloride(INHALANT)0.9%* 5 ML NEB.SOLN INH SCH ×2 (08:50→20:24)
[2018-05-03] MEDS: Mometasone/Formoter 100/5 MDI INH SCH ×2 (08:50→20:24)
[2018-05-03] MEDS: Fluticasone NASAL SPRAY 50MCG* 16 gm SPRAY BTL BOTH NARES SCH (09:57)
--- NOTE | 2018-05-03 15:12 | PN ---
Subjective Date of Service: 05/03/18 Interval History: Patient is concerned about her abdominal bloating stating it is worse today than yesterday (some mild improvement yesterday but does appear a little more distended). No nausea but reports epigastric discomfort Only one BM this am which she states was loose. No further abdominal pain. She states overall she has had "great improvement" but then states "Im not going home feeling like this". She reports poor appetite today. No vomiting. Other compliant is she is SOB and feels because she is bloated she cant breath well. She has a harsh cough but states this is her normal. Reports continued sputum production also stating this is her normal. No fevers or chills. Feels steady on her feet. Objective Active Medications: Acetaminophen (Tylenol Tab*) 650 mg PO Q4H PRN PRN Reason: FEVER/PAIN Last Admin: 05/01/18 22:00 Dose: 650 mg Al Hydrox/Mg Hydrox/Simethicone (Maalox Plus*) 30 ml PO Q6H PRN PRN Reason: INDIGESTION Last Admin: 05/01/18 10:32 Dose: 30 ml Albuterol (Ventolin Hfa Inhaler*) 2 puff INH Q4H PRN PRN Reason: SOB/WHEEZING Last Admin: 05/02/18 19:15 Dose: 2 puff Amitriptyline HCl (Elavil Tab*) 40 mg PO BEDTIME [facility] Last Admin: 05/02/18 21:03 Dose: 40 mg Aspirin (Aspirin Ec Tab*) 81 mg PO DAILY [facility] Last Admin: 05/03/18 08:36 Dose: 81 mg Carvedilol (Coreg Tab*) 6.25 mg PO BID [facility] Last Admin: 05/03/18 08:36 Dose: 6.25 mg Cetirizine HCl (Zyrtec*) 10 mg PO QPM [facility] Last Admin: 05/02/18 17:27 Dose: 10 mg Cholecalciferol (Vitamin D Tab*) 2,000 units PO DAILY [facility] Last Admin: 05/03/18 08:34 Dose: 2,000 units Fluticasone Propionate (Flonase Nasal [place] 50mcg*) 2 spray BOTH NARES DAILY [facility] Last Admin: 05/03/18 09:57 Dose: 2 spray Hydromorphone HCl (Dilaudid Inj*) 1 mg IV SLOW PU Q4H PRN PRN Reason: PAIN - BREAKTHROUGH Last Admin: 04/30/18 23:51 Dose: 1 mg Hydromorphone HCl (Dilaudid Tab*) 4 mg PO TID PRN PRN Reason: PAIN Last Admin: 05/03/18 07:30 Dose: 4 mg Hydroxychloroquine Sulfate (Plaquenil Tab*) 400 mg PO DAILY [facility] Last Admin: 05/03/18 08:35 Dose: 400 mg Lactobacillus Rhamnosus (Lactobacillus Acidophilus*) 1 tab PO BID [facility] Last Admin: 05/03/18 08:35 Dose: 1 tab Loperamide HCl (Imodium Cap*) 2 mg PO Q4H PRN PRN Reason: DIARRHEA Last Admin: 05/02/18 13:02 Dose: 2 mg Mometasone Furoate/Formoterol Fumar (Dulera 100/5 Mdi*) 2 puff INH BID [facility] Last Admin: 05/03/18 08:50 Dose: 2 puff Therabreath Lozenges 1 dose TOPICAL . NEEDED PRN PRN Reason: DRY MOUTH Omeprazole (Prilosec Cap*) 20 mg PO DAILY@0600 [facility] Last Admin: 05/03/18 05:03 Dose: 20 mg Ondansetron HCl (Zofran 40 Mg Vial*) 4 mg IV Q4H PRN PRN Reason: NAUSEA/VOMITING Last Admin: 05/01/18 12:14 Dose: 4 mg Prednisone (Deltasone Tab*) 7.5 mg PO DAILY [facility] Last Admin: 05/03/18 08:36 Dose: 7.5 mg Rifaximin (Xifaxan*) 550 mg PO TID [facility] Last Admin: 05/03/18 14:31 Dose: 550 mg Sertraline HCl (Zoloft*) 75 mg PO DAILY [facility] Last Admin: 05/03/18 08:35 Dose: 75 mg Simethicone (Mylicon Tab*) 80 mg PO Q6H PRN PRN Reason: INDIGESTION Last Admin: 05/02/18 15:33 Dose: 80 mg Sodium Chloride (Sodium Chloride(Inhalant)0.9%*) 5 ml INH BID [facility] Last Admin: 05/03/18 08:50 Dose: 5 ml Vitamin B Complex/Vitamin E (B Complex-50*) 1 tab PO DAILY [facility] Last Admin: 05/03/18 08:35 Dose: 1 tab Vital Signs - 8 hr 05/03/18 05/03/18 05/03/18 07:30 07:38 08:55 Temperature 97.7 F Pulse Rate 95 90 Respiratory 18 20 16 Rate Blood Pressure 164/77 (mmHg) O2 Sat by Pulse 92 91 Oximetry 05/03/18 05/03/18 09:59 11:55 Temperature 98.1 F Pulse Rate 85 Respiratory 20 20 Rate Blood Pressure 92/63 (mmHg) O2 Sat by Pulse 91 Oximetry Oxygen Devices in Use Now: Nasal Cannula Appearance: well developed 83 yo female laying in bed in NAD, A+O x3 Eyes: No Scleral Icterus, PERRLA Ears/Nose/Mouth/Throat: Mucous Membranes Moist Respiratory: Symmetrical Chest Expansion and Respiratory Effort, Clear to Auscultation, - - harsh wet cough Cardiovascular: NL Sounds; No Murmurs; No JVD, RRR, No Edema Abdominal: - - slightly distended, soft, nontender, NL BS Extremities: No Edema, No Clubbing, Cyanosis Skin: No Rash or Ulcers, No Nodules or Sclerosis Neurological: Alert and Oriented x 3, NL Sensation, NL Gait, NL Muscle Strength and Tone Lines/Tubes/Other Access: Clean, Dry and Intact Peripheral IV Result Diagrams: 05/03/18 05:47 05/02/18 06:06 Microbiology and Other Data: Microbiology 04/30/18 19:40 Stool Gross Appearance - Final Stool C. difficile DNA Amplification - Final 027 Presumptive NEGATIVE Toxigenic C.diff NEGATIVE 04/30/18 17:40 Stool Gross Appearance - Final Stool Assess/Plan/Problems-Billing Assessment: 82 yo female with a PMH of HTN, unknown autoimmune disease as well as collagen disorder on Plaquenil and Prednisone, hx of fibromyalgia rheumatica on chronic pain medications, diastolic dysfunction, who presented to the ER on 04/27 with c/o severe epigastric pain and chest pain who initially was admitted for CP r/o ACS, then after admission had a large bloody bowel movement now there is a concern for possible enteric ischemia - Patient Problems (1) Diarrhea Comment: - Improving only 1 loose stool today, at her baseline she has IBS-D. unclear etiology why she has had increased stool, several days ago was explosive but now has resolved. Possibly ischemic colitis vs infectious vs antibiotic related. - Negative CDiff - stool cx pending. - Biopsy from recent colonoscopy negative for pathology. - Pt is stable, she continues to improve daily - Discussed with Dr. Sotelo (GI) (04/30) who recommends restarting pts imodium, Discussed again today with Dr. Sotelo who will see the patient 05/04 d/t continued bloating and discomfort and pt request. - continue simethacone for abd bloating - abdominal xray showing air fluid levels with gut dysmotility. - Discussed with GI - plan to stop Rifaxamin (2) GI bleeding Comment: - Resolved. There was concern for ischemic colitis with diffuse abdominal pain and bloody bowel movements. No signs of acute abdomen or Sepsis - now overall improving. No further bloody BMs. Abdominal pain has resolved. - Appreciate GI consult; unprepped colonoscopy with Dr. Lee 04/28 showing clots, no signs of ischemia noted - Biopsy showing no pathology. No further abx per GI. F/u with GI in 3-4 weeks. Can discuss if anticoagulation is necessary during f/u with GI as outpt. In the setting of GI bleed not appropriate to start anticoagulation at this time but may require it in the future for dx of ischemic colitis - however this dx was not proven by colonoscopy/biopsy - HH stable. (3) Bronchiectasis Comment: - Chronic Hx -cough with sputum production at baseline. Intermittent sputum production currently - Follows with Dr. Brown who saw her today - does not recommend any further treatment at this time, she is not concerned about the pleural effusion. Will follow up as outpt. - Continues home meds, Inhalers - O2 requirements are improving but continues to require 1-2 L NC unable to wean off O2, she may need to go home on O2 - chest xray 04/29 - showing bilateral atelectasis. Repeat chest xray 05/02 showing left pleural effusion (small) and possible development of pulmonary edema. - encourage IS/flutter valve and ambulation. (4) Autoimmune disorder Comment: Continue plaquenil and prednisone. (5) Hypertension Comment: Controlled. Continue Coreg home dose 6.25 mg BID (6) DVT prophylaxis Comment: SCDs in the setting of GI bleeding (7) Full code status Status and Disposition: inpatient. Most likely will go home when medically stable.
[2018-05-03] MEDS: Al Hydrox/Mg Hydrox/Simet LIQ* 30 ML UDC PO PRN (16:17)
[2018-05-03] MEDS: Cetirizine* 10 MG TAB PO SCH (17:18)
[2018-05-03] MEDS: Ondansetron 40 MG VIAL* 2 MG/ML 20 ML VIAL IV PRN (20:37)
[2018-05-03] MEDS: Acetaminophen TAB* 325 MG PO PRN (20:37)
[2018-05-03] MEDS: Amitriptyline TAB* 10 MG PO SCH (20:39)
[2018-05-03] MEDS: Magnesium Oxide TAB* 400 MG PO SCH (20:39)
--- NOTE | 2018-05-03 21:48 | CONS ---
PULMONARY CONSULTATION REPORT: DATE OF CONSULT: 05/03/18 CONSULTATION REQUESTED BY: Franca Burris NP REASON FOR CONSULT: Evaluation of shortness of breath and hypoxemia. HISTORY OF PRESENT ILLNESS: The patient is an 83-year-old female with history of bronchiectasis, scleroderma, Raynaud's, depression, mitral valve disease, chronic diastolic CHF, obstructive sleep apnea, known to me from prior outpatient evaluation. The patient presents for evaluation of epigastric and chest pain. The patient presented to the ED on 04/27/18 for evaluation of epigastric and chest pain that has progressively gotten worse. The patient also had GI bleed. The patient underwent colonoscopy that revealed blood clot without source of bleeding identified. The patient also reported retrosternal chest pain. The patient did not have upper endoscopy performed. She has history of gastroesophageal reflux disease, on PPI. The patient has been on chronic prednisone therapy and Plaquenil for autoimmune disorder. The patient also had drop in hemoglobin, received IV hydration. The patient was initiated on O2 supplementation for hypoxemia. The patient has been requiring O2 supplementation at 2 to 3 L per minute. The patient has been complaining of abdominal bloating and distention. Abdominal x-ray suggestive of air-fluid levels and possible ileus. The patient reports chronic cough with dark phlegm with increased amounts recently. The patient reports being unable to take deep breaths recently secondary to the abdominal pain. The patient denies fevers, chills, nausea, vomiting. The patient had CTA of the chest and chest x-ray. I have personally reviewed chest x-ray and CTA of the chest results. No significant change noted on CTA of the chest, mild bronchiectasis stable bilaterally, no pneumonia or parenchymal consolidation was seen. Chest x-ray most recently showed evidence of vascular congestion and small left pleural effusion. The patient does not have significant white count. PAST MEDICAL HISTORY: 1. Asthma. 2. Cardiomyopathy. 3. Diastolic CHF. 4. Fibromyalgia and scleroderma. 5. Bronchiectasis. 6. Glaucoma. 7. Degenerative joint disease. 8. GERD. 9. Dyslipidemia. 10. Obstructive sleep apnea, not being treated currently. 11. Raynaud's. 12. Depression. 13. Mitral valve disease. PAST SURGICAL HISTORY: Bilateral total knee replacement, hysterectomy, nasal septoplasty, tubal ligation, right lower extremity vein stripping, tonsillectomy and adenoidectomy, bilateral cataract extractions. MEDICATIONS AT HOME: 1. Atenolol. 2. Ventolin. 3. Elavil. 4. Vitamin C. 5. Aspirin. 6. Symbicort. 7. Coreg. 8. Vitamin D. 9. Estrogen. 10. Flonase. 11. Dilaudid. 12. Plaquenil. 13. Probiotic. 14. Xyzal. 15. Imodium. 16. Prilosec. 17. Prednisone. 18. Actonel. 19. Zoloft. 20. Sodium chloride nebulization. 21. Multivitamins. 22. Vitamin B complex. ALLERGIES: MORPHINE, VALSARTAN, PERCOCET. FAMILY HISTORY: Noncontributory. SOCIAL HISTORY: Nonsmoker. Denies alcohol or drug abuse. 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 REVIEW OF SYSTEMS: A 14-point review of systems was performed and is as per HPI. PHYSICAL EXAM: The patient is in bed, in no apparent distress. Alert, awake, oriented x3. Vital Signs: Temperature 98.7, pulse 85 beats per minute, respiratory rate 20 per minute, O2 sat 92% on 2 L, blood pressure 133/68. HEENT : Pupils equal, reactive to light. Mucous membranes moist. Lungs: Good air entry bilaterally, scattered crackles at bases. Cardiovascular: S1, S2 present. Regular. Abdomen: Slightly distended, tenderness in the epigastric area. Bowel sounds present. Extremities: Normal range of motion. No edema. Skin: No rash or bruises. Neuro: No focal deficits. DIAGNOSTIC STUDIES/LAB DATA: WBC 4.7, hemoglobin 12.1, hematocrit 35, platelet count 210. Sodium 140, potassium 3.5, chloride 104, bicarb 32, BUN 6, creatinine 0.48, magnesium slightly decreased at 1.6. CRP 100.8. Chest x-ray and CT as described above in HPI. IMPRESSION AND RECOMMENDATIONS: 83-year-old female with autoimmune disorder, on chronic prednisone and Plaquenil, admitted with gastrointestinal bleed, likely lower gastrointestinal bleed, with no clear etiology at this time. The patient reports mild worsening shortness of breath. The patient has received IV fluids recently after gastrointestinal bleed that might have resulted in vascular congestion and pleural effusion. I do not think the patient has acute chronic obstructive pulmonary disease exacerbation at this time. I do not think she might have infected pleural fluid. Limit IV fluids given history of diastolic congestive heart failure. Mobilize out of bed as tolerated. Titrate FiO2 as tolerated. Continue with flutter device, hypertonic saline for mucus mobilization. Rest of management as per primary team. Thank you for allowing me to participate in care of your patient. Will follow up with you. [id number]/[facility] #: [id number] EMILY
[2018-05-04] MEDS: Simethicone TAB* 80 MG TAB.CHEW PO PRN (04:09)
[2018-05-04 06:42] LABS: ABS Basophils 0 10^3/ul (0-0.2); ABS Eosinophils 0.1 10^3/ul (0-0.6); ABS Lymphocytes 0.6 10^3/ul (1.0-4.8); ABS Monocytes 0.6 10^3/ul (0-0.8); ABS Neutrophils 3.6 10^3/ul (1.5-7.7); ABS Nucleated RBC 0 10^3/ul; Eosinophil % 2.3 % (0-6); Hematocrit 34 % (35-47); Hemoglobin 11.8 g/dl (12.0-16.0); Lymphocyte % 12.5 % (25-47); Mean Corpuscular HGB Conc 35 g/dl (31-36); Mean Corpuscular Hemoglobin 33 pg (27-31); Mean Corpuscular Volume 94 fL (80-97); Mean Platelet Volume 8.8 um3 (7.4-10.4); Nucleated Red Blood Cells % 0.2; Platelet Count 235 10^3/ul (150-450); Red Cell Distribution Width 13 % (10.5-15); White Blood Count 4.9 10^3/ul (3.5-10.8)
[2018-05-04 06:50] LABS: EGFR Non-African American 100.8 (>60)
[2018-05-04] MEDS: Loperamide CAP* 2 MG PO PRN (07:47)
[2018-05-04] MEDS: Sertraline* 25 MG TAB PO SCH (07:47)
[2018-05-04] MEDS: Aspirin EC TAB* 81 MG TAB.EC PO SCH (07:47)
[2018-05-04] MEDS: Cholecalciferol TAB* 1000 UNITS PO SCH (07:47)
[2018-05-04] MEDS: Omeprazole CAP* 20 MG PO SCH (07:47)
[2018-05-04] MEDS: Magnesium Oxide TAB* 400 MG PO SCH (07:47)
[2018-05-04] MEDS: Lactobacillus Acidophilus* 1 TAB PO SCH (07:47)
[2018-05-04] MEDS: Vitamin B Complex TAB PO SCH (07:47)
[2018-05-04] MEDS: Carvedilol TAB* 6.25 MG PO SCH (07:48)
[2018-05-04] MEDS: predniSONE TAB* 5 MG PO SCH (07:48)
[2018-05-04] MEDS: Hydroxychloroquine TAB* 200 MG PO SCH (07:48)
[2018-05-04] MEDS: Fluticasone NASAL SPRAY 50MCG* 16 gm SPRAY BTL BOTH NARES SCH (07:49)
[2018-05-04] MEDS: Acetaminophen TAB* 325 MG PO PRN (07:57)
[2018-05-04] MEDS: Sodium Chloride(INHALANT)0.9%* 5 ML NEB.SOLN INH SCH (08:09)
[2018-05-04] MEDS: Mometasone/Formoter 100/5 MDI INH SCH (08:10)
[2018-05-04] MEDS ORDERED: Potassium Chlor TAB* 20 MEQ TAB.ER PO ONE (13:30)
[2018-05-04 15:20] VITALS: BP 109/54
--- NOTE | 2018-05-05 09:25 | DS ---
AMENDED REPORT NOW INCLUDES COSIGNER DESIGNATION - ESIGNED BEFORE ADJUSTMENT CC: Dr. Lowe * DISCHARGE SUMMARY: DATE OF ADMISSION: 04/27/18. DATE OF DISCHARGE: 05/04/18. PRIMARY CARE PHYSICIAN: Dr. Derrick Lowe. ATTENDING FOR THIS ADMISSION: Yamila Mckeon DO. MY ATTENDING FOR TODAY: Dr. Анна Upton.* (DICTATED BY MISBAH ELENA NP) HOSPITAL COURSE: This is an 83-year-old female who presented to the emergency department with a complaint of abdominal and epigastric pain. She was initially admitted for chest pain rule out; however, she does also carry a history of an unknown autoimmune disease and collagen disorder, not clearly identified on her previous records. She is currently on Plaquenil and prednisone for the same. She also has a history of chronic pain, fibromyalgia, and some diastolic dysfunction. The patient again was complaining of this abdominal pain and had a large bloody bowel movement prior to her admission. Her initial diagnosis was to rule out an ischemic bowel; however, after seen Dr. Lee, who performed a colonoscopy, which was unprepped, stated that she did appear to have an area of clot; however, did not see any active bleeding in the bowel and did not seem ischemic. The patient also had subsequent diarrhea, which resolved. She had a negative workup for C. diff. A biopsy from a recent colonoscopy was also negative. Dr. Sotelo saw the patient again today. The patient states she still is having intermittent diarrhea; however, it is likely secondary to IBS and does not require any further workup. The patient was requesting an upper endoscopy while she was inpatient. We deferred to GI regarding that workup. They recommended outpatient followup and to continue her antidiarrheals at home for IBS-D. GI bleeding has since resolved. She also had some hypoxic episodes and was short of breath. She does have baseline bronchiectasis. She was seen by Dr. Alina Brown, who evaluated her chest x- ray. She does have a little pleural effusion and some interval atelectasis. She has been requiring 1 to 2 L nasal cannula and was not able to wean. Dr. Brown stated that she can follow up as an outpatient with her in the office; however, the patient's O2 sats were still low on room air, dropping down to 86% and 87% off O2; as such she will be discharged on home oxygen. On day of discharge, the patient is still complaining of some abdominal bloating and discomfort; however, she denies any fever, fatigue, chills. No chest pain. No shortness of breath on her oxygen. She does get winded off oxygen. She complained of 1 episode of diarrhea today, but no bleeding and no bloody bowel movements, and no further constitutional complaints. DISCHARGE DIAGNOSES: 1. Diarrhea, likely irritable bowel syndrome with diarrhea, stable. 2. Gastrointestinal bleeding, stable. 3. Bronchiectasis with new oxygen requirement. 4. History of autoimmune disorder. 5. History of hypertension. 6. History of chronic pain. DISCHARGE MEDICATIONS: Include: 1. Prednisone 7.5 mg daily. 2. B complex 1 tablet daily. 3. PreserVision AREDS 2 softgel 1 cap 2 times a day. 4. Sodium chloride nebulized 2 times a day. 5. Zoloft 75 mg daily. 6. Actonel 35 mg weekly. 7. Omeprazole 20 mg 2 times a day. 8. Loperamide 2 mg q. 4 hours as needed. 9. Xyzal 5 mg p.o. daily. 10. Probiotic 1 cap daily. 11. Plaquenil 400 mg daily. 12. Dilaudid 4 mg 3 times a day as needed. 13. Fluticasone 2 sprays both nares daily. 14. Premarin vaginal cream 1 application twice a week. 15. Vitamin D 2000 units daily. 16. Carvedilol 6.25 mg 2 times a day. 17. Symbicort 80/4.5 two puffs 2 times a day. 18. Baby aspirin 81 mg daily. 19. Vitamin C 1000 mg daily. 20. Amitriptyline 40 mg at bedtime. 21. Ventolin inhaler 2 puffs q. 4 hours as needed. 22. Acetaminophen 500 mg q. 6 hours as needed. 23. Omeprazole 20 mg daily. PHYSICAL EXAMINATION: Vital Signs: Blood pressure is 121/64, heart rate 88, respiratory rate 18, satting at 95% on 2 L nasal cannula, temperature 97.5. HEENT: The patient is atraumatic and normocephalic. PERRLA with non-icteric sclera. Neck: Supple, nontender. No JVD noted. No carotid bruit auscultated. Cardiovascular: S1, S2 are present. No murmurs, gallops or rubs noted. Rate and rhythm are regular. Lungs are clear at the apices bilaterally with no wheezing, rhonchi or rales, severely diminished at the bases with poor inspiratory effort. Abdomen is soft, nontender, and nondistended. Positive bowel sounds in all 4 quadrants. She is slightly hyperactive in her bowel sounds. : Deferred. Musculoskeletal: There is no clubbing, no cyanosis, no edema. She has +2 distal pulses palpable. Steady gait with no assistance. Neurologic: She is grossly intact with no focalities noted. Psychiatric: She is alert and appropriate. LABORATORY DATA: WBC is 4.9, RBC is 3.60, hemoglobin of 11.8, hematocrit 34, and platelets 235. Sodium 137, potassium 3.3, treated; chloride 99, CO2 of 30, BUN 12, creatinine 0.57. GFR is 100.8, glucose 132, calcium 8.5, magnesium 2.0. IMAGING REPORTS: Abdominal x-ray dated 05/02/18, shows air fluid levels and degrading degree of bowel dysmotility. There is no evidence of complete obstruction or intraperitoneal gas. Chest, abdomen, and pelvis CTA dated shows normal age-appropriate CT arteriography. Evaluation of the gastrointestinal tract is limited without oral contrast. The CT findings are compatible with enteritis involving the small bowel in the low midline abdomen and additional chronic degenerative and iatrogenic findings as described in the body of the CT report. DISPOSITION PLANNING: The patient did not qualify for short-term rehab services. She will be discharged to home with the [facility] referral. She was seen by Dr. Sotelo today, who cleared her from a GI perspective with outpatient followup. The patient should follow up with Dr. Sotelo in the next 1 to 2 weeks as needed and also with Dr. Derrick Lowe, her primary care provider. She already has an appointment setup with him for 05/07/18 at 4 p.m. The patient was discharged in stable condition. The patient stated her understanding of her discharge needs and followups, and medications at the time of discharge. No new medication changes were added to her current regimen. MISBAH ELENA, COPPER PLATER [id number]/[facility] #: [id number] [facility] HOSPITALFaby
== END 2018-05-04 17:10 | disposition home health service (06) | DRG 392 ==
LOC: ED 06:35 → MEDTELE 09:52 → INTOOBSV 11:19 → OBSVTOIN 11:19 → MED 05-03 20:17
PROVIDERS: ADMIT Internal Medicine; ATTEND Hospitalist
PROC: 0DBL8ZX Excision of Transverse Colon, Via Natural or Artificial Opening Endoscopic, Diagnostic (ICD-10-PCS; principal; 2018-05-03)
DX: K58.0 Irritable bowel syndrome with diarrhea (principal); K92.2 Gastrointestinal hemorrhage, unspecified; I42.9 Cardiomyopathy, unspecified; I50.32 Chronic diastolic (congestive) heart failure; J98.11 Atelectasis; I73.00 Raynaud's syndrome without gangrene; J45.909 Unspecified asthma, uncomplicated; K21.9 Gastro-esophageal reflux disease without esophagitis; M81.0 Age-related osteoporosis without current pathological fracture; F32.9 Major depressive disorder, single episode, unspecified; Z96.653 Presence of artificial knee joint, bilateral; M35.9 Systemic involvement of connective tissue, unspecified; M79.7 Fibromyalgia; M19.90 Unspecified osteoarthritis, unspecified site; E78.5 Hyperlipidemia, unspecified; G47.33 Obstructive sleep apnea (adult) (pediatric); I05.9 Rheumatic mitral valve disease, unspecified; I11.0 Hypertensive heart disease with heart failure; J47.9 Bronchiectasis, uncomplicated; M35.3 Polymyalgia rheumatica; D89.89 Other specified disorders involving the immune mechanism, not elsewhere classified; R42 Dizziness and giddiness; F41.9 Anxiety disorder, unspecified; K57.30 Diverticulosis of large intestine without perforation or abscess without bleeding; R09.02 Hypoxemia; Z99.81 Dependence on supplemental oxygen; Z79.52 Long term (current) use of systemic steroids; Z88.8 Allergy status to other drugs, medicaments and biological substances; Z88.5 Allergy status to narcotic agent; Z90.710 Acquired absence of both cervix and uterus; Z98.42 Cataract extraction status, left eye; Z98.41 Cataract extraction status, right eye; Z98.51 Tubal ligation status; Z88.1 Allergy status to other antibiotic agents; Z85.828 Personal history of other malignant neoplasm of skin; Z72.89 Other problems related to lifestyle; Z79.82 Long term (current) use of aspirin
CPT/HCPCS: 36415; 71045; 71046; 71275; 74019; 74174; 76705; 80048; 80053; 80061; 82150; 83605; 83615; 83690; 83735; 84439; 84443; 84484; 85014; 85018; 85025; 85027; 85730; 86140; 86850; 86900; 86901; 87045; 87046; 87077; 87493; 87899; 88305; 93005; 94640; 99156; 99157; 99283; A9270-GY; G0378; J0780; J1170; J1644; J2250; J2270; J2543; J3010; J3475; J3480; J3490; J7512; Q9967

== ENCOUNTER 2018-10-27 11:57 | Day surgery (SDC) | payer MEDICARE ==
[~2018-10-27 11:57] MED LIST: Famotidine IV* 10 MG/ML 2 ML (20 mg) IV ONE
[2018-10-27] MEDS ORDERED: Famotidine IV* 10 MG/ML 2 ML (20 mg) ONE (13:07)
[2018-10-27] MEDS ORDERED: Buffered Lidocaine 0.9% SYRIN* 5 ML/SYR SYRINGE INTRADERM ONE (14:17)
[2018-10-27] MEDS ORDERED: Ofloxacin 0.3% (Ear Drop)* 5 ml BTL ONE (14:32)
[2018-10-27] MEDS ORDERED: Oxymetazoline 0.05% NASAL SPR* 15 ML BTL ONE (14:32)
[2018-10-27] MEDS ORDERED: Triamcinolone Acetonide* 40 MG/ML 1 ML VIAL ONE (14:32)
[2018-10-27] MEDS ORDERED: Gelfoam 12-7 ADSORBABL SPONGE* 1 EA SPONGE ONE (14:33)
[2018-10-27] MEDS ORDERED: Phenylephrine 0.25% NASAL* PUFF ONE (14:33)
[2018-10-27] MEDS ORDERED: Lidocaine 2% EPI 1:200000 MPF*10-20 ML VIAL ONE (14:33)
[2018-10-27] MEDS ORDERED: Gelatin ADSORBABLE (OPHTH)* OPHTH.FILM ONE (14:33)
[2018-10-27] MEDS ORDERED: Propofol* 10 MG/ML 20 ML BTL ONE ×2 (14:45→15:40)
[2018-10-27] MEDS ORDERED: Ondansetron INJ* 2 MG/ML VIAL ONE (14:45)
[2018-10-27] MEDS ORDERED: Lidocaine 2% PF * 5 ML VIAL ONE (14:45)
[2018-10-27] MEDS ORDERED: fentaNYL* 50 MCG/ML 2 ML VIAL (100 MCG VIAL) ONE (14:45)
[2018-10-27] MEDS ORDERED: Dexamethasone IV* 4 MG/ML 1 ML (4 MG) ONE (14:45)
[2018-10-27] MEDS ORDERED: Midazolam* 1 MG/ML 5 ML VIAL (5 MG) ONE (14:45)
[2018-10-27] MEDS ORDERED: fentaNYL* 50 MCG/ML 2 ML VIAL (100 MCG VIAL) IV PRN (15:56)
[2018-10-27] MEDS ORDERED: Ondansetron INJ* 2 MG/ML VIAL IV PRN (15:56)
[2018-10-27] MEDS ORDERED: Naloxone* 0.4 MG/ML 1 ML VIAL IV PRN (15:56)
[2018-10-27 16:26] VITALS: BP 152/93
--- NOTE | 2018-10-27 21:21 | OP ---
DATE OF OPERATION: 10/27/18 - [facility] DATE OF : 31 SURGEON: Dr. Collier. PRE-OP DIAGNOSES: Chronic sinusitis and chronic serous effusion, left ear with conductive hearing loss. POST-OP DIAGNOSES: Chronic sinusitis and chronic serous effusion, left ear with conductive hearing loss. OPERATIVE PERFORMED: Left ear tympanostomy, T-tube and bilateral video endoscopic maxillary antrostomy, bilateral anterior ethmoidectomy. BRIEF HISTORY: This pleasant 83-year-old female with longstanding history of sinus complaints, nasal congestion, rhinorrhea, postnasal drainage, and facial pressure. Previous CT scan showed some opacifications of sinuses. She had been on steroids for long periods of time and oral antibiotics intermittently without improvement in symptoms. She also had serous effusion with conductive hearing loss. DESCRIPTION OF PROCEDURE: The patient was taken to the operating room. General anesthetic was given, the patient was intubated. Left ear was examined under the microscope. Anterior inferior myringotomy incision was created. Small amount of serous effusion removed from both ears. A T-tube was placed. The operation was then turned to the nose. Decongestion was carried out with Afrin placed pledgets. 0 degree telescope, 30-degree telescopes, and other endoscopic sinus surgery instruments were utilized including . We infiltrated the uncinate process on both sides of the middle turbinate and ethmoid region on both sides with 2% lidocaine with epinephrine. Uncinectomy was then carried out using microshaver. The antrostomy was then identified and enlarged. Ethmoidal front face bulla was resected out into the nasal frontal duct on the left side. Next, we turned our attention to right side. The uncinate process was peeled out from the right side. Antrostomy was enlarged. The ethmoidal bulla was resected out and a large nasal frontal polyp was then removed in the nasal frontal duct area. The area was then packed with Gelfilm and Gelfoam on both sides. The patient was then awakened, sent to recovery in stable condition. Instrument and sponge counts correct. Blood loss minimal. [id number]/[facility] #: [id number] MTDD
--- NOTE | 2018-10-28 08:10 | OP ---
DATE OF OPERATION: 10/27/18 - [facility] DATE OF : 31 SURGEON: Dr. Collier PRE-OP DIAGNOSES: Chronic sinusitis, chronic facial pain, and serous effusion with conductive hearing loss, left ear. POST-OP DIAGNOSES: Chronic sinusitis, chronic facial pain, and serous effusion with conductive hearing loss, left ear. BRIEF HISTORY: This pleasant 83-year-old female with longstanding history of chronic symptoms of sinusitis, facial pressure, congestion, frequent rhinorrhea , steroids and oral antibiotics did not help. Serous effusion left ear, conductive hearing loss, wearing hearing aids. DESCRIPTION OF PROCEDURE: The patient was taken to the operating room. General anesthetic was given, the patient was intubated. Left ear was examined under the microscope. Anterior inferior myringotomy incision was created. Small amount of serous effusion removed. T-tube was placed. Next... DICTATION ENDS HERE. [id number]/[facility] #: [id number] MTDD
== END 2018-10-27 17:08 | disposition home or self-care (01) ==
LOC: OR 11:57
PROVIDERS: ATTEND Otolaryngology
DX: J32.8 Other chronic sinusitis (principal); H65.22 Chronic serous otitis media, left ear; G47.33 Obstructive sleep apnea (adult) (pediatric); I42.9 Cardiomyopathy, unspecified; I25.5 Ischemic cardiomyopathy; I27.20 Pulmonary hypertension, unspecified; Z79.52 Long term (current) use of systemic steroids; K21.9 Gastro-esophageal reflux disease without esophagitis; M19.90 Unspecified osteoarthritis, unspecified site
CPT/HCPCS: A9270-GY; J1100; J2250; J2405; J2704; J3010; J3301

== ENCOUNTER 2019-08-08 09:22 | Emergency (ER) | payer MEDICARE ==
[2019-08-08 09:30] VITALS: BP 148/79
--- NOTE | 2019-08-08 09:47 | UC ---
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 Made a movement with her wrist and realized that she had a new lump pressing on her watch band. mildly tender, no redness or warmth. Additionally, she has been aware of increasing brown sputum, without fever, chills or signs of systemic illness. hx of bronchiectasis. About 5 years ago she used levaquin for a similar purulent sputum. Discussed with decision to culture sputum and wait rather than presumptively treat. - History of Current Complaint Chief Complaint: Altagracia Stated Complaint: SOFT TISSUE Time Seen by Provider: 08/08/19 09:34 Hx Obtained From: Patient Onset/Duration: Sudden Onset, Lasting Days - 1 Severity Initially: Mild Severity Currently: Mild Pain Intensity: 5 Location Of Pain: Is Discrete @ - left wrist Character: Aching Aggravating Factor(s): Movement, Lifting Alleviating Factor(s): Nothing Associated Signs And Symptoms: Positive: Swelling. Negative: Redness, Bruising , Weakness, Numbness/Tingling - Allergies/Home Medications Allergies/Adverse Reactions: Allergies Allergy/AdvReac Type Severity Reaction Status Date / Time valsartan Allergy Intermediate Coughing Verified 08/08/19 09:31 morphine AdvReac See Comment Verified 08/08/19 09:31 PMH/Surg Hx/FS Hx/Imm Hx - Additional Past Medical History Additional PMH: Mixed connective tissue disease, giant cell arteritis. Cardiovascular History: Other - cardiomyopathy - Surgical History Surgical History: Yes Surgery Procedure, Year, and Place: bilat Total knee replacements,. hysterectomy,. septoplasty,. tubal,. rt vericose vein stripping,. T & A,. CATARACTS,. Rt EYE - GLAUCOMA LASER SURGERY;. TUBES IN EAR - IN RIGHT EAR ( CAME OUT) LEFT EAR IS STILL IN;. SINUS SURGERY OCT 2018; - Family History Known Family History: Positive: Non-Contributory Negative: Renal Disease - Social History Occupation: Retired Lives: Alone Alcohol Use: Rare Alcohol Amount: 2 oz wine daily Substance Use Type: None Substance Use Comment - Amount & Last Used: CBD Oil Smoking Status (MU): Never Smoked Tobacco Have You Smoked in the Last Year: No - Immunization History Most Recent Influenza Vaccination: "Last flu season 2014" Most Recent Tetanus Shot: Within past 10 years Most Recent Pneumonia Vaccination: "up to date, per pt" Review of Systems All Other Systems Reviewed And Are Negative: Yes Constitutional: Positive: Fatigue ENT: Positive: Nasal Discharge, Sinus Congestion. Negative: Sore Throat, Ear Ache Respiratory: Positive: Cough Motor: Positive: Decreased ROM - chronic back pain, osteoarthritis limit activities. Neurovascular: Positive: Negative Musculoskeletal: Positive: Arthralgia Neurological: Positive: Negative Psychological: Positive: Negative Physical Exam Triage Information Reviewed: Yes Appearance: Well-Appearing - cheerful, talkative elderly woman, looks younger than age., Pain Distress - mild Vital Signs: Initial Vital Signs Temp 98 F 08/08/19 09:28 Pulse 100 08/08/19 09:28 Resp 20 08/08/19 09:28 BP 148/79 08/08/19 09:28 Pulse Ox 100 08/08/19 09:28 ENT: Positive: Pharynx normal, TMs normal Neck: Positive: Supple, Nontender, No Lymphadenopathy Respiratory: Positive: Decreased breath sounds - bilaterally, with prolonged expiration, Rhonchi - scattered both lung graves Cardiovascular: Positive: RRR, No Murmur Musculoskeletal Exam: Other - ulnar border of distal left forearm with 2cm x 1.5 cm nodule, compressible, which reduces with wrist flexion and increases with extension Musculoskeletal: Positive: ROM Limited @ - left wrist, with mild decrease in extension. Neurological Exam: Normal Psychological Exam: Normal Skin Exam: Normal Upper Extremity Course/Dx - Course Course Of Treatment: 1--obtain sputum for culture 2--reasured that ganglion cyst is benign, and does not necessarily need treatment. - Differential Dx/Diagnosis Differential Diagnosis/HQI/PQRI: Strain, Sprain, Other - ganglion cyst. Provider Diagnosis: Ganglion cyst of dorsum of left wrist Discharge ED - Sign-Out/Discharge Documenting (check all that apply): Patient Departure All imaging exams completed and their final reports reviewed: No Studies - Discharge Plan Condition: Stable Disposition: HOME Patient Education Materials: Ganglion Cysts (ED) Referrals: Claritza Abrams MD [Primary Care Provider] - Soni Rodriguez MD [Medical Doctor] - Additional Instructions: As we discussed, treatment of the ganglion cyst is ekective, and depends on symptoms. You can choose to get an opinion frm Dr. Rodriguez depending on how much it is bothering, or if it becomes associaited with any numbness or tingling in the hand. Your sputum will be sent for culture, and you will schedule a follow up visit with Dr. Mitchell's office to evaluate your current sinus symptoms. - Billing Disposition and Condition Condition: STABLE Disposition: Home
--- NOTE | 2019-08-09 15:33 | UC ---
- Progress Note Progress Note: Pt with productive cough with brown sputum. Sputum culture with pseudomonas. Rx for levaquin sent - important to f/u with PCP in 1 week for a recheck Course/Dx - Diagnoses Provider Diagnoses: Ganglion cyst of dorsum of left wrist Discharge ED - Sign-Out/Discharge Documenting (check all that apply): Post-Discharge Follow Up All imaging exams completed and their final reports reviewed: No Studies - Discharge Plan Condition: Stable Disposition: HOME Prescriptions: Levofloxacin TAB* [Levaquin TAB*] 750 mg PO DAILY #5 tab Patient Education Materials: Ganglion Cysts (ED) Referrals: Claritza Abrams MD [Primary Care Provider] - Soni Rodriguez MD [Medical Doctor] - Additional Instructions: As we discussed, treatment of the ganglion cyst is ekective, and depends on symptoms. You can choose to get an opinion frm Dr. Rodriguez depending on how much it is bothering, or if it becomes associaited with any numbness or tingling in the hand. Your sputum will be sent for culture, and you will schedule a follow up visit with Dr. Mitchell's office to evaluate your current sinus symptoms. - Billing Disposition and Condition Condition: STABLE Disposition: Home
== END 2019-08-08 10:16 | disposition home or self-care (01) ==
LOC: UCEAST 09:22
DX: M67.432 Ganglion, left wrist (principal); B96.5 Pseudomonas (aeruginosa) (mallei) (pseudomallei) as the cause of diseases classified elsewhere; D89.89 Other specified disorders involving the immune mechanism, not elsewhere classified; M35.1 Other overlap syndromes; M31.6 Other giant cell arteritis
CPT/HCPCS: 87070; 87077; 87186; 87205; 99211; G0463